=== PATIENT | female | born 1990 | race African-American/Black ===

== ENCOUNTER → 2018-01-29 | Outpatient (CLI) | payer OTHER ==
--- NOTE | 2018-01-30 17:08 | SLEEP ---
DATE OF STUDY: 01/29/2018 REFERRING PHYSICIAN: Dr. iWllis. OBJECTIVE: The patient is a 27-year-old female with prior diagnosis of narcolepsy and cataplexy, referred for a polysomnogram. Height 5 feet 4 inches, weight 181 pounds, body mass index 31. [place] sleep score 14. INTERPRETATION: Sleep architecture is characterized by sleep efficiency of 92% across the 7.4 hours of recording time. Stage volumes are appropriate for age. There is a sleep onset latency of 4 minutes. Respiratory monitoring shows a total of 34 events for an apnea-hypopnea index of 5 events per hour over the entire study. Prior to treatment, the apnea-hypopnea index is 15.9 events per hour of sleep. The patient is started on CPAP on the study and does the best on 9 cm of CPAP using a Respironics EasyLife nasal mask, small size. Periodic limb movements of sleep occur at the rate of 8 per hour, zero per hour associated with arousal. No cardiac arrhythmias are observed. IMPRESSION: Abnormal polysomnogram showing obstructive sleep apnea-hypopnea treatable with the 9 cm of CPAP, Respironics EasyLife nasal mask, small size. RECOMMENDATIONS: 1. The patient should be started on the CPAP setting. 2. Further diagnosis of narcolepsy should be held until the patient has had an adequate trial of CPAP. 3. The patient should avoid sedatives and alcohol and pursue weight loss. Thank you for letting us help with the patient's care. IVONE DE ANDA MD DR: EMIL/radha JOB#: [id number] / [id number] QUENTIN Reyes
== END | disposition home or self-care (01) ==
LOC: SLPLAB 18:26
PROVIDERS: ATTEND Psychiatry & Neurology Neurology
DX: G47.33 Obstructive sleep apnea (adult) (pediatric) (principal)
CPT/HCPCS: 95810

== ENCOUNTER 2018-05-24 12:45 | Inpatient (IN) | payer BC, OTHER ==
[~2018-05-24] VITALS: Ht 162.6 cm; Wt 83.5 kg
[2018-05-24] MEDS ORDERED: ONDANSETRON PF 4 MG/2 ML VIAL. IV PRN (14:45)
[2018-05-24] MEDS ORDERED: 0.9 % SODIUM CHLORIDE 10 ML DISP.SYRIN. IV PRN (14:45)
--- NOTE | 2018-05-24 14:45 | NUR ---
Pt arrived to unit by EMS, from [facility], report received by NATALIYA Lux. Admission Dx SBO vs appendicitis. Dr Walsh paged for orders, surgery consulted. Bed in low position, call light in reach, family present on admission. Allergies verified, Pt NPO at this time, IVFs initiated.
[2018-05-24 14:58] VITALS: BP 108/59
[2018-05-24] MEDS: fentaNYL PF VIAL 100 MCG/2 ML VIAL IV PRN ×2 (15:30→20:37)
[2018-05-24] MEDS: IV NORMAL SALINE 1000ML BAG 1,000 ML IV SCH (15:33)
[2018-05-24] MEDS: PIPERACILLIN/TAZOBACTAM 3.375 GM in IV NORMAL SALINE 50ML 50 ML IV SCH (17:21)
[2018-05-24 19:41] VITALS: BP 109/47
--- NOTE | 2018-05-24 20:10 | PDOC2 ---
CONSULT Date of Consult Date of Consult DATE: 05/24/18 TIME: 20:05 Reason for Consult Reason for Consult: SBO Referring Physician Referring Physician: Nico Identification/Chief Complaint Chief Complaint Abd pain Source Source: Chart review, Patient History of Present Illness Reason for Visit: 27 yo F with abd pain for one week. Seen in Er multiple times. Having normal stools. No previous episodes. Past Medical History Pulmonary: Other (sleep apnea) CENTRAL NERVOUS SYSTEM: Migraine Renal/: Other (nephrotic syndrome as teenage) Past Surgical History Past Surgical History: Other (kidney biopsy) Family History Family History: No Significant Social History No ALCOHOL: none Current Medications Current Medications Current Medications Sodium Chloride (Normal Saline Flush) 3 ml PRN DAILY PRN IV AFTER MEDS AND BLOOD DRAWS; Start 05/24/18 at 14:45 Ondansetron HCl (Zofran) 4 mg PRN Q4HRS PRN IV NAUSEA/VOMITING; Start at 14:45 Sodium Chloride 1,000 ml @ 100 mls/hr Q10H IV Last administered on 05/24/18at 15:33; Start 05/24/18 at 16:00 Fentanyl Citrate (Fentanyl 2ml Vial) 50 mcg PRN Q3HRS PRN IV PAIN Last administered on 05/24/18at 15:30; Start 05/24/18 at 14:45 Piperacillin Sod/ Tazobactam Sod 3.375 gm/Sodium Chloride 50 ml @ 100 mls/hr Q6HRS IV Last administered on 05/24/18at 17:21; Start 05/24/18 at 18:00 Allergies Allergies: Coded Allergies: Sulfa (Sulfonamide Antibiotics) (Verified Allergy, Intermediate, 05/24/18) lorazepam (Verified Allergy, Intermediate, 05/24/18) morphine (Verified Allergy, Intermediate, 05/24/18) oxycodone (Verified Allergy, Intermediate, 05/24/18) ROS Gastrointestinal: Yes Abdominal Pain Physical Exam General: Alert, Oriented X3, Cooperative, No acute distress HEENT: EOMI Lungs: Normal air movement Abdomen: Soft, Other (TTP diffusely, obese) Extremities: No clubbing, No cyanosis Skin: No rashes, No breakdown Neuro: Normal speech, Sensation intact Psych/Mental Status: Mental status NL, Mood NL Vitals VITALS Vital Signs Date Time Temp Pulse Resp B/P (MAP) Pulse Ox O2 Delivery O2 Flow Rate FiO2 05/24/18 19:41 97.4 67 18 109/47 (67) 98 Room Air 97.[address] c/w SBO, some free fluid Assessment/Plan Assessment/Plan SBO, favor enteritis no obvious appendix seen agree with abx and supportive care Thanks for consult! EVONNE ROBBINS MD May 24, 2018 20:10
[2018-05-24 23:49] VITALS: BP 106/44
[2018-05-25] VITALS (12 sets, daily range): BP systolic 98–122; BP diastolic 44–63
[2018-05-25] MEDS: PIPERACILLIN/TAZOBACTAM 3.375 GM in IV NORMAL SALINE 50ML 50 ML IV SCH ×5 (00:27→23:43)
[2018-05-25] MEDS: fentaNYL PF VIAL 100 MCG/2 ML VIAL IV PRN ×6 (00:39→18:21)
[2018-05-25] MEDS: IV NORMAL SALINE 1000ML BAG 1,000 ML IV SCH ×3 (06:01→18:19)
--- NOTE | 2018-05-25 09:39 | PDOC ---
ANDERSON OMALLEY APRN 05/25/18 0939: SURGICAL PROGRESS NOTE Subjective pain is worse diffuse, with stabbing RLQ pain no emesis, no diarrhea Vital Signs Vital Signs Date Time Temp Pulse Resp B/P (MAP) Pulse Ox O2 Delivery O2 Flow Rate FiO2 05/25/18 09:09 Room Air 05/25/18 07:00 98.4 66 16 108/53 (71) 96 98.4 I&O Intake and Output 05/25/18 07:01 Intake Total 0 ml Balance 0 ml Intake Oral 0 ml General: Alert, Oriented X3, Cooperative, No acute distress Abdomen: Soft, Other (diffusely ttp) Assessment/Plan abdominal pain labs pending NPO, will have EVONNE Kahn MD 05/25/18 1507: SURGICAL PROGRESS NOTE Assessment/Plan Given pt's persistent pain, recommend proceeding with laparoscopic exploration, appendectomy. R/R/B/A d/w pt and pt's family. Risks, including, but not limited to: bleeding , infection, damage to surrounding structures, risk of anesthesia. They appear to understand, their questions are answered and they elect to proceed. ANDERSON OMALLEY APRN May 25, 2018 09:39 EVONNE ROBBINS MD May 25, 2018 15:07
--- NOTE | 2018-05-25 10:03 | HP ---
ADMIT DATE: 05/25/2018 HISTORY OF PRESENT ILLNESS: The patient is a 27-year-old -[place] female patient, who apparently was seen in the Emergency Room of [facility] last Sunday complaining of abdominal pain. She was apparently diagnosed with severe constipation and was given laxatives. Although she did have bowel movement, she continued to have abdominal pain and she came yesterday to the Emergency Room of [facility], where a CT scan of the abdomen was done and showed that there was possible appendicitis versus bowel obstruction and [facility] team. The patient was kept n.p.o. Continue IV fluid and IV antibiotic as well as antiemetic and pain medication. PAST MEDICAL HISTORY: Significant for minimal change disease with nephrotic syndrome that is currently in remission. She is also known to have bronchial asthma that is mild and obstructive sleep apnea, for which she is on CPAP. She also has esophageal stricture and dysphagia. PAST SURGICAL HISTORY: Significant for kidney biopsy, esophageal stricture dilatation and surgery for squint. ALLERGIES: SHE IS ALLERGIC TO ATIVAN, MORPHINE, SULFA DRUGS AND CODEINE. MEDICATIONS: She is currently on the following medications: She stated that she was on metoprolol for headache. FAMILY HISTORY: She has 3 brothers and 3 sisters. One sister is younger. Everybody else is older and all seemingly healthy. Her father is , had history of COPD and congestive heart failure. His mother is still alive at the age of 60 and known to have hypertension. SOCIAL HISTORY: She is single, has no children. She never smoked. She does not drink alcohol or use recreational drugs. She works as a teacher. PHYSICAL EXAMINATION: GENERAL: On arrival to the Emergency Room of [facility], she looked well and was clearly in no apparent respiratory distress. No pallor, jaundice, cyanosis or thyromegaly. No jugular venous distention. No lower limb edema. VITAL SIGNS: Her heart rate was 64, blood pressure was 110/60, temperature was 98.3, respiratory rate was 18 and oxygen saturation was 100% on room air. HEENT: Examination of head, eyes, ears, nose and throat showed she is normocephalic, atraumatic. NECK: Supple. HEART: Showed normal first and second heart sounds. No gallop, rub or murmur. CHEST: Clear to auscultation. No crepitation or rhonchi. ABDOMEN: Tender, mostly in the right lower quadrant. There was, however, no guarding or rigidity. No organomegaly. All hernial orifices intact and bowel sounds normal. NEUROLOGIC: She was awake, alert, responding appropriately. All cranial nerves intact. She moved extremities without difficulty. She ambulated without assistance or assistive devices. LABORATORY DATA: While there, she had lab work done, which showed a white cell count of 18,800, hemoglobin 11.8, hematocrit 35.3, MCV was 87 and platelet count of 258,000 with normal manual differential. Her serum sodium was 136, potassium was 3, chloride was 100, bicarbonate 27, anion gap of 9, BUN 16, creatinine 1, estimated GFR was 81 mL per minute, her glucose was 84 and calcium was 8.5. Total bilirubin 0.5. AST, ALT and alkaline phosphatase were normal. Total protein was 7.3. Albumin 2.5. Her lipase was 88. Urinalysis showed the urine was yellow, hazy with a pH of 6, specific gravity of 1.020. The urine was negative for protein, glucose, ketones and blood. There was trace of blood, negative for nitrite and bilirubin. It was negative for leukocyte esterase. There were occasional rbc's, 1-4 wbc's and very few bacteria. The urine showed some yeast and urine test was negative. She apparently had a CT scan of the abdomen and pelvis, which basically showed that there was bowel obstruction with a transition zone in the right lower quadrant and therefore, the [facility] to continue with the IV fluid and status and continue with IV antibiotic in the form of Zosyn. Continue with antiemetic and pain medication. Her CT scan showed that there was interval development of small-bowel obstruction with transition point within the mid pelvis and ascites noted adjacent to the cecum, extending along the pelvic sidewall. Pelvic free fluid is present, subtle rim enhancement; underlying infectious etiology is questioned. LAUREN MAYA MD DR: RUPERT/radha JOB#: [id number] / [id number]
[2018-05-25 10:11] LABS: BASO % 0 % (0-3); EOS # 0.5 x10^3/uL (0.0-0.7); EOS % 4 % (0-3); HEMATOCRIT 34.9 % (36.0-47.0); LYMPH # 1.3 x10^3/uL (1.0-4.8); LYMPH % 10 % (24-48); MEAN CORPUSCULAR HEMOGLOBIN 30 pg (25-35); MEAN CORPUSCULAR HGB CONC 34 g/dL (31-37); MEAN CORPUSCULAR VOLUME 88 fL (79-100); MONO # 1.6 x10^3/uL (0.0-1.1); MONO % 13 % (0-9); NEUT # 9.7 x10^3uL (1.8-7.7); NEUT % 74 % (31-73); PLATELET COUNT 247 x10^3/uL (140-400); RED BLOOD COUNT 3.97 x10^6/uL (3.50-5.40); RED CELL DISTRIBUTION WIDTH 14.1 % (11.5-14.5); WHITE BLOOD COUNT 13.1 x10^3/uL (4.0-11.0)
[2018-05-25 10:18] LABS: ALBUMIN 2.2 g/dL (3.4-5.0); ALBUMIN/GLOBULIN RATIO 0.6 (1.0-1.7); CALCIUM 8.2 mg/dL (8.5-10.1); CREATININE 0.9 mg/dL (0.6-1.0); GFR 91.6; POTASSIUM 3.4 mmol/L (3.5-5.1); TOTAL PROTEIN 5.8 g/dL (6.4-8.2)
[2018-05-25 12:43] LABS: % BANDS 1 % (0-9); % EOS 5 % (0-5); % LYMPHS 11 % (24-48); % MONOS 12 % (0-10); % SEGS 71 % (35-66); PLT ESTIMATE ADEQUATE (ADEQUATE)
[2018-05-25] MEDS ORDERED: IV RINGERS,LACTATED 1000ML 1,000 ML IV SCH (15:08)
[2018-05-25] MEDS ORDERED: ONDANSETRON PF 4 MG/2 ML VIAL. IV PRN ×2 (15:15→18:00)
[2018-05-25] MEDS ORDERED: LIDOCAINE 1% PF 2 ML VIAL. ID PRN (15:15)
[2018-05-25] MEDS ORDERED: PROCHLORPERAZINE 10 MG/2 ML VIAL. IV PRN (15:15)
[2018-05-25] MEDS ORDERED: fentaNYL PF VIAL 100 MCG/2 ML VIAL IV PRN (15:15)
[2018-05-25] MEDS ORDERED: PROPOFOL 20 ML IV ONE (15:29)
[2018-05-25] MEDS ORDERED: fentaNYL PF VIAL 100 MCG/2 ML VIAL ONE (15:29)
[2018-05-25] MEDS ORDERED: ONDANSETRON PF 4 MG/2 ML VIAL. ONE (15:29)
[2018-05-25] MEDS ORDERED: ROCURONIUM 50 MG/5 ML VIAL. ONE (15:29)
[2018-05-25] MEDS ORDERED: KETOROLAC 30 MG/ML INJ FOR OR. INJ ONE (15:29)
[2018-05-25] MEDS ORDERED: LIDOCAINE 2% PF Vial for OR 5 ML VIAL. ONE (15:29)
[2018-05-25] MEDS ORDERED: DEXAMETHASONE SOD PHOS 20 MG/5 ML VIAL. ONE (15:29)
[2018-05-25] MEDS ORDERED: MIDAZOLAM HCL/PF 2 MG/2 ML VIAL. ONE (15:46)
[2018-05-25] MEDS ORDERED: BUPIVAC MPF-EPI 0.5%-1:200000 30 ML VIAL. ONE (16:03)
[2018-05-25] MEDS ORDERED: FAMOTIDINE 20 MG/2 ML VIAL ONE (16:37)
[2018-05-25] MEDS ORDERED: NEOSTIGMINE METHYLSULFATE 5 MG/5 ML SYRINGE. ONE (17:14)
[2018-05-25] MEDS ORDERED: GLYCOPYRROLATE 1 MG/5 ML VIAL. ONE (17:14)
[2018-05-25] MEDS ORDERED: SEVOFLURANE 31 TO 60 MINUTES. IH ONE (17:15)
[2018-05-25] MEDS: IV RINGERS,LACTATED 1000ML 1,000 ML IV SCH (17:58)
[2018-05-25] MEDS ORDERED: 0.9 % SODIUM CHLORIDE 10 ML DISP.SYRIN. IV PRN (18:00)
--- NOTE | 2018-05-25 18:10 | PDOC4 ---
OPERATIVE NOTE Date: Date: May 25, 2018 Pre-Op Diagnosis: Abdominal pain, small bowel obstruction Post-Op Diagnosis: same, pelvic inflammatory disease Procedure Performed: Laparoscopic appendectomy, exploration Surgeon: Kailash Robbins Anesthesia Type: GETA plus local Blood Loss: 50 Specimans Obtained: cultures, abscess specimen, appendix Findings: Diffuse inflammatory change involving the deep pelvis, no obvious abscess, secondarily inflamed appendix Complications: none Operative Note: After obtaining informed consent, patient was taken to OR, induced under GETA and prepped in the usual fashion. 5 mm port placed LLQ and suprapubic, 12 port placed umbilical, all under laparoscopic guidance. Abdominal cavity was explored. Extensive amount of inflammatory change noted in deep pelvis with adherent loops of small bowel. This was extensive broken up laparoscopically and cultures were obtained. Fibrinous debris was sent to pathology. Uterus grossly normal, but ovaries were difficult to complete identify. Small bowel loops secondarily involved in the process. These were gentle , secondary to concern for small bowel obstruction. Serosal tear created, inherent to procedure, but no mucosal defect created and bowel remained intact. Ultimately, small bowel and colon worked out and no obvious pathology noted, except for secondary inflammation. Gallbladder grossly normal, as is liver and stomach. Appendix was identified and appeared to be secondarily involved. Given concerns for appendicitis, it was resected. Defect created in mesoappendix. CAMILLA used to amputate appendix at base of cecum. Mesoappendix taken with vascular load. Appendix placed in bag, delivered and sent to pathology for evaluation. Copious irrigation performed, with several liters of fluid concentrating in pelvis. No obvious bleeding or additional pathology noted. Ports removed without bleeding. Fascia repaired with 0 vicryl. Skin repaired with 4 0 monocryl. Dressing applied. Patient tolerated procedure well and sent to PACU in stable condition. All counts correct. Wound class is 4, dirty. EVONNE ROBBINS MD May 25, 2018 18:10
[2018-05-25] MEDS: HYDROmorphone 2 MG/ML VIAL IV PRN ×2 (19:44→20:55)
[2018-05-25 20:49] LABS: U PREG PATIENT NEGATIVE (NEG)
[2018-05-25] MEDS: HYDROcodone/APAP 5/325MG 1 TAB TABLET PO PRN (20:49)
[2018-05-25] MEDS: KETOROLAC 15 MG/ML VIAL. IV PRN (20:49)
[2018-05-25] MEDS: DOCUSATE SODIUM 100 MG CAPSULE. PO SCH (21:00)
--- NOTE | 2018-05-25 23:15 | PN ---
DATE: 05/25/2018 SUBJECTIVE: The patient is resting slightly propped up, sleeping comfortably, in no apparent distress. On questioning her, she continued to complain of abdominal pain that is diffuse, worse in the right lower quadrant. She has had no nausea or vomiting; however, she denied any bowel movement or passing gas. Her last bowel movement was yesterday. Denied any fever, chills or rigors. PHYSICAL EXAMINATION: GENERAL: When I examined her, she looked well and was clearly in no apparent respiratory distress. No pallor, jaundice, cyanosis or thyromegaly. No jugular venous distension. No limb edema. VITAL SIGNS: Her heart rate was 66, blood pressure was 108/53, temperature was 98.4, respiratory rate was 16 and oxygen saturation was 96% on room air. HEAD, EYES, EARS, NOSE AND THROAT: Normocephalic, atraumatic. NECK: Supple. HEART: Showed normal first and second heart sounds. No gallop, rub or murmur. CHEST: Clear to auscultation. No crepitation or rhonchi. ABDOMEN: Distended, soft with tenderness mostly in the right lower quadrant. There is no guarding or rigidity. Bowel sounds are sluggish. NEUROLOGIC: She is awake, alert, responding appropriately. All cranial nerves are intact. She moves extremities without difficulty. She ambulates without assistance or assistive devices. She apparently was seen by Dr. Paredes yesterday who recommended to continue with antibiotic and supportive therapy for the time being. In summary, this is a 27-year-old female patient who came with abdominal pain. CT scan was consistent with small bowel obstruction. Would continue with IV fluid, continue with IV antibiotic, continue pain management as well as antiemetic. I would repeat her lab work this morning as her potassium was somewhat low yesterday on 80 mEq to make sure that is not contributing to paralytic ileus if any. LAUREN MAYA MD DR: RUPERT/radha JOB#: [id number] / [id number]
[2018-05-26] VITALS (7 sets, daily range): BP systolic 105–122; BP diastolic 53–69
[2018-05-26] MEDS: HYDROcodone/APAP 5/325MG 1 TAB TABLET PO PRN ×5 (03:00→22:43)
[2018-05-26] MEDS: KETOROLAC 15 MG/ML VIAL. IV PRN ×2 (03:01→14:27)
[2018-05-26] MEDS: IV RINGERS,LACTATED 1000ML 1,000 ML IV SCH (03:49)
[2018-05-26] MEDS: HYDROmorphone 2 MG/ML VIAL IV PRN (03:50)
[2018-05-26] MEDS: IV NORMAL SALINE 1000ML BAG 1,000 ML IV SCH (06:15)
[2018-05-26] MEDS: PIPERACILLIN/TAZOBACTAM 3.375 GM in IV NORMAL SALINE 50ML 50 ML IV SCH ×3 (06:15→17:40)
[2018-05-26] MEDS: fentaNYL PF VIAL 100 MCG/2 ML VIAL IV PRN ×3 (06:24→21:04)
[2018-05-26 08:05] LABS: BASO % 0 % (0-3); EOS % 0 % (0-3); HEMATOCRIT 35.2 % (36.0-47.0); HEMOGLOBIN 11.9 g/dL (12.0-15.5); LYMPH # 0.8 x10^3/uL (1.0-4.8); LYMPH % 5 % (24-48); MEAN CORPUSCULAR HEMOGLOBIN 30 pg (25-35); MEAN CORPUSCULAR HGB CONC 34 g/dL (31-37); MEAN CORPUSCULAR VOLUME 87 fL (79-100); MONO % 6 % (0-9); NEUT # 15.4 x10^3uL (1.8-7.7); NEUT % 89 % (31-73); PLATELET COUNT 286 x10^3/uL (140-400); RED BLOOD COUNT 4.04 x10^6/uL (3.50-5.40); RED CELL DISTRIBUTION WIDTH 14.2 % (11.5-14.5); WHITE BLOOD COUNT 17.3 x10^3/uL (4.0-11.0)
--- NOTE | 2018-05-26 09:12 | PDOC ---
SURGICAL PROGRESS NOTE Subjective taking some clears moderate pain Vital Signs Vital Signs Date Time Temp Pulse Resp B/P (MAP) Pulse Ox O2 Delivery O2 Flow Rate FiO2 05/26/18 06:54 Room Air 05/26/18 03:50 94 05/26/18 03:07 98.1 60 18 112/60 (77) 98.1 05/25/18 18:05 10.0 I&O Intake and Output 05/26/18 07:01 Intake Total 1590 ml Output Total 200 ml Balance 1390 ml Intake Oral 590 ml IV Total 1000 ml Output Urine Total 200 ml # Voids 1 General: Alert, Oriented X3, Cooperative, No acute distress Abdomen: Soft, Other (dressings dry, lower abdominal tenderness ) Labs Laboratory Tests Test 05/25/18 09:30 05/25/18 15:30 05/26/18 07:36 White Blood Count 13.1 x10^3/uL (4.0-11.0) 17.3 x10^3/uL (4.0-11.0) Red Blood Count 3.97 x10^6/uL (3.50-5.40) 4.04 x10^6/uL (3.50-5.40) Hemoglobin 12.0 g/dL (12.0-15.5) 11.9 g/dL (12.0-15.5) Hematocrit 34.9 % (36.0-47.0) 35.2 % (36.0-47.0) Mean Corpuscular Volume 88 fL (79-100) 87 fL (79-100) Mean Corpuscular Hemoglobin 30 pg (25-35) 30 pg (25-35) Mean Corpuscular Hemoglobin Concent 34 g/dL (31-37) 34 g/dL (31-37) Red Cell Distribution Width 14.1 % (11.5-14.5) 14.2 % (11.5-14.5) Platelet Count 247 x10^3/uL (140-400) 286 x10^3/uL (140-400) Neutrophils (%) (Auto) 74 % (31-73) 89 % (31-73) Lymphocytes (%) (Auto) 10 % (24-48) 5 % (24-48) Monocytes (%) (Auto) 13 % (0-9) 6 % (0-9) Eosinophils (%) (Auto) 4 % (0-3) 0 % (0-3) Basophils (%) (Auto) 0 % (0-3) 0 % (0-3) Neutrophils # (Auto) 9.7 x10^3uL (1.8-7.7) 15.4 x10^3uL (1.8-7.7) Lymphocytes # (Auto) 1.3 x10^3/uL (1.0-4.8) 0.8 x10^3/uL (1.0-4.8) Monocytes # (Auto) 1.6 x10^3/uL (0.0-1.1) 1.0 x10^3/uL (0.0-1.1) Eosinophils # (Auto) 0.5 x10^3/uL (0.0-0.7) 0.0 x10^3/uL (0.0-0.7) Basophils # (Auto) 0.0 x10^3/uL (0.0-0.2) 0.0 x10^3/uL (0.0-0.2) Segmented Neutrophils % 71 % (35-66) Band Neutrophils % 1 % (0-9) Lymphocytes % 11 % (24-48) Monocytes % 12 % (0-10) Eosinophils % 5 % (0-5) Platelet Estimate Adequate (ADEQUATE) Sodium Level 141 mmol/L (136-145) Potassium Level 3.4 mmol/L (3.5-5.1) Chloride Level 104 mmol/L (98-107) Carbon Dioxide Level 24 mmol/L (21-32) Anion Gap 13 (6-14) Blood Urea Nitrogen 20 mg/dL (7-20) Creatinine 0.9 mg/dL (0.6-1.0) Estimated GFR (Cockcroft-Gault) 91.6 BUN/Creatinine Ratio 22 (6-20) Glucose Level 64 mg/dL (70-99) Calcium Level 8.2 mg/dL (8.5-10.1) Total Bilirubin 1.0 mg/dL (0.2-1.0) Aspartate Amino Transf (AST/SGOT) 12 U/L (15-37) Alanine Aminotransferase (ALT/SGPT) 12 U/L (14-59) Alkaline Phosphatase 53 U/L (46-116) Total Protein 5.8 g/dL (6.4-8.2) Albumin 2.2 g/dL (3.4-5.0) Albumin/Globulin Ratio 0.6 (1.0-1.7) Urine Test Negative (NEG) Laboratory Tests Test 05/25/18 09:30 05/25/18 15:30 05/26/18 07:36 White Blood Count 13.1 x10^3/uL (4.0-11.0) 17.3 x10^3/uL (4.0-11.0) Red Blood Count 3.97 x10^6/uL (3.50-5.40) 4.04 x10^6/uL (3.50-5.40) Hemoglobin 12.0 g/dL (12.0-15.5) 11.9 g/dL (12.0-15.5) Hematocrit 34.9 % (36.0-47.0) 35.2 % (36.0-47.0) Mean Corpuscular Volume 88 fL (79-100) 87 fL (79-100) Mean Corpuscular Hemoglobin 30 pg (25-35) 30 pg (25-35) Mean Corpuscular Hemoglobin Concent 34 g/dL (31-37) 34 g/dL (31-37) Red Cell Distribution Width 14.1 % (11.5-14.5) 14.2 % (11.5-14.5) Platelet Count 247 x10^3/uL (140-400) 286 x10^3/uL (140-400) Neutrophils (%) (Auto) 74 % (31-73) 89 % (31-73) Lymphocytes (%) (Auto) 10 % (24-48) 5 % (24-48) Monocytes (%) (Auto) 13 % (0-9) 6 % (0-9) Eosinophils (%) (Auto) 4 % (0-3) 0 % (0-3) Basophils (%) (Auto) 0 % (0-3) 0 % (0-3) Neutrophils # (Auto) 9.7 x10^3uL (1.8-7.7) 15.4 x10^3uL (1.8-7.7) Lymphocytes # (Auto) 1.3 x10^3/uL (1.0-4.8) 0.8 x10^3/uL (1.0-4.8) Monocytes # (Auto) 1.6 x10^3/uL (0.0-1.1) 1.0 x10^3/uL (0.0-1.1) Eosinophils # (Auto) 0.5 x10^3/uL (0.0-0.7) 0.0 x10^3/uL (0.0-0.7) Basophils # (Auto) 0.0 x10^3/uL (0.0-0.2) 0.0 x10^3/uL (0.0-0.2) Segmented Neutrophils % 71 % (35-66) Band Neutrophils % 1 % (0-9) Lymphocytes % 11 % (24-48) Monocytes % 12 % (0-10) Eosinophils % 5 % (0-5) Platelet Estimate Adequate (ADEQUATE) Sodium Level 141 mmol/L (136-145) Potassium Level 3.4 mmol/L (3.5-5.1) Chloride Level 104 mmol/L (98-107) Carbon Dioxide Level 24 mmol/L (21-32) Anion Gap 13 (6-14) Blood Urea Nitrogen 20 mg/dL (7-20) Creatinine 0.9 mg/dL (0.6-1.0) Estimated GFR (Cockcroft-Gault) 91.6 BUN/Creatinine Ratio 22 (6-20) Glucose Level 64 mg/dL (70-99) Calcium Level 8.2 mg/dL (8.5-10.1) Total Bilirubin 1.0 mg/dL (0.2-1.0) Aspartate Amino Transf (AST/SGOT) 12 U/L (15-37) Alanine Aminotransferase (ALT/SGPT) 12 U/L (14-59) Alkaline Phosphatase 53 U/L (46-116) Total Protein 5.8 g/dL (6.4-8.2) Albumin 2.2 g/dL (3.4-5.0) Albumin/Globulin Ratio 0.6 (1.0-1.7) Urine Test Negative (NEG) Problem List s/p appy, PID await CHEMICAL ANALYTICAL SAMPLER, ID ANDERSON Yuan APRN May 26, 2018 09:12
[2018-05-26] MEDS: POTASSIUM CL 40MEQ D5-0.45NACL 1,000 ML IV SCH ×2 (09:41→22:20)
[2018-05-26] MEDS: DOCUSATE SODIUM 100 MG CAPSULE. PO SCH ×2 (09:42→21:03)
[2018-05-26] MEDS: ENOXAPARIN 40 MG/0.4 ML SYRINGE. SQ SCH (09:42)
--- NOTE | 2018-05-26 10:32 | NUR ---
This nurse administered the Lovenox shot for this patient then went to administer the Flagyl, patient has complaints of "buring in the throat", this nurse spoke with pharmacy as well as Dr. Walsh. Orders received for Benadryl. This nurse will continue to assist with this patient as needed.
[2018-05-26] MEDS ORDERED: diphenhydrAMINE 50 MG/ML VIAL IVP PRN (10:45)
[2018-05-26] MEDS: DOXYCYCLINE HYCLATE 100 MG in IV DEXTROSE 5% 100ML 100 ML IV SCH ×2 (11:19→21:03)
--- NOTE | 2018-05-26 13:59 | PDOC ---
Infectious Disease Note Vital Sign Vital Signs Vital Signs Date Time Temp Pulse Resp B/P (MAP) Pulse Ox O2 Delivery O2 Flow Rate FiO2 05/26/18 11:50 Room Air 1.0 05/26/18 11:00 58 18 116/67 (83) 95 05/26/18 07:00 98.4 98.4 Labs Lab Laboratory Tests Test 05/25/18 15:30 05/26/18 07:36 05/26/18 09:45 Urine Test Negative (NEG) White Blood Count 17.3 x10^3/uL (4.0-11.0) Red Blood Count 4.04 x10^6/uL (3.50-5.40) Hemoglobin 11.9 g/dL (12.0-15.5) Hematocrit 35.2 % (36.0-47.0) Mean Corpuscular Volume 87 fL (79-100) Mean Corpuscular Hemoglobin 30 pg (25-35) Mean Corpuscular Hemoglobin Concent 34 g/dL (31-37) Red Cell Distribution Width 14.2 % (11.5-14.5) Platelet Count 286 x10^3/uL (140-400) Neutrophils (%) (Auto) 89 % (31-73) Lymphocytes (%) (Auto) 5 % (24-48) Monocytes (%) (Auto) 6 % (0-9) Eosinophils (%) (Auto) 0 % (0-3) Basophils (%) (Auto) 0 % (0-3) Neutrophils # (Auto) 15.4 x10^3uL (1.8-7.7) Lymphocytes # (Auto) 0.8 x10^3/uL (1.0-4.8) Monocytes # (Auto) 1.0 x10^3/uL (0.0-1.1) Eosinophils # (Auto) 0.0 x10^3/uL (0.0-0.7) Basophils # (Auto) 0.0 x10^3/uL (0.0-0.2) Treponema pallidum Antibody Nonreactive (Nonreactive) Objective Assessment Acute onset abdominal pain s/p lap appendectomy, exploration, 05/25; Diffuse inflammatory change involving the deep pelvis, no obvious abscess, secondarily inflamed appendix found Leukocytosis, multifactorial (infection, surgery, pre-op steroids) Sulfa allergy - hives and itching Recent UTI diagnosed at [facility]. Rx cipro h/x unprotected sex and chlamydia Nephrotic syndrome Plan Plan of Care Chlam/GC PCR UR pending. Syphilis - neg HIV screen pending margarita Ramesh/Lan (per PRESS SETTER) Monitor labs/temp/pain level Safe sex practices discussed D/w RN D/w mother Attending Co-Sign Attending Co-Sign The patient was seen and interviewed as well as examined at the bedside. The chart was reviewed. The case was discussed. Agree with the plan of care. LEENA SMITH APRN May 26, 2018 13:59 YOLANDE SAUCEDO MD May 26, 2018 15:27
[2018-05-26] MEDS: LACTOBACILLUS RHAMNOSUS GG 1 CAPSULE. PO SCH (21:03)
[2018-05-27] MEDS: PIPERACILLIN/TAZOBACTAM 3.375 GM in IV NORMAL SALINE 50ML 50 ML IV SCH ×4 (00:02→21:51)
--- NOTE | 2018-05-27 00:30 | PN ---
DATE: 05/26/2018 SUBJECTIVE: The patient is resting slightly propped up in bed, in no apparent distress. She continued to complain of abdominal pain; however, she denied any nausea or vomiting. Denied any passing gas or having bowel movement. She apparently underwent laparoscopic appendectomy and exploration. She was found to have diffuse inflammatory changes involving the deep pelvis. No obvious abscess, secondarily inflamed appendix. PHYSICAL EXAMINATION: GENERAL: When I examined her this morning, she was resting flat comfortably, in no apparent respiratory distress. No pallor, jaundice, cyanosis or thyromegaly. No jugular venous distension. No lower limb edema. VITAL SIGNS: Her heart rate was 60, blood pressure was 112/60, temperature was 98.1, respiratory rate was 18 and oxygen saturation was 94%. HEAD, EYES, EARS, NOSE AND THROAT: Showed normocephalic, atraumatic. NECK: Supple. HEART: Showed normal first and second heart sounds with no gallop, rub or murmur. CHEST: Clear to auscultation. No crepitation or rhonchi. ABDOMEN: Definitely more distended than yesterday, diffuse tenderness. NEUROLOGIC: She is awake, alert, responding appropriately. Her intake over the last 24 hours was 1550, no output was recorded. LABORATORY DATA: As of this morning showed a white cell count of 17,300, hemoglobin 11.9, hematocrit 35, MCV 87 and platelet count of 286,000. Her serum sodium was 141, potassium 3.4, chloride 104, bicarbonate 24, anion gap of 13, BUN 20, creatinine 0.9, estimated GFR was 91 mL per minute. Her glucose was 64. Calcium was 9.2. Total bilirubin, AST, ALT, alkaline phosphatase were normal. Total protein was 5.8, albumin was 2.2. ASSESSMENT: 1. The patient was found to have diffuse inflammatory changes involving the deep pelvis. No obvious abscess, secondarily inflamed appendix, status post laparoscopic appendectomy and exploration. 2. Other medical problems include bronchial asthma. 3. Obstructive sleep apnea, on CPAP. 4. Nephrotic syndrome, in remission. 5. Hypokalemia. PLAN: My plan is to change her IV fluid to D5 half normal with 40 mEq of potassium chloride. The patient was started on a clear liquid diet. The patient asking whether she can go home and I advised her that it is probably not a good idea given that she continued to have this severe pain. LAUREN MAYA MD DR: RUPERT/radha JOB#: [id number] / [id number]
--- NOTE | 2018-05-27 01:10 | CONS ---
DATE OF CONSULTATION: 05/26/2018 REASON FOR CONSULTATION: Pelvic inflammatory disease. CONSULTING SERVICE: Internal Medicine. HISTORY OF PRESENT ILLNESS: This is a 27-year-old nulliparous white female who presented to the hospital approximately 05/24/2018 with acute pelvic pain. The patient gives a history of having infertility problems over the past few years and actually had seen an infertility doctor on 05/13/2018 with subsequent pelvic pain starting shortly after that. The patient describes a vaginal ultrasound, but no other procedure. The patient denies any similar problems in the past, any problems with dyspareunia or pelvic pain or abnormal uterine bleeding. PAST MEDICAL HISTORY: Significant for bronchial asthma, esophageal strictures, dysphagia. PAST SURGICAL HISTORY: Kidney polyp biopsy, esophageal dilatation. PAST GYNECOLOGIC HISTORY: The patient gives no history of abnormal Pap smears. PAST SEXUALLY TRANSMITTED DISEASES HISTORY: She had chlamydia approximately 6 years ago that was treated. FAMILY HISTORY: Noncontributory. Chart reviewed. Dr. Paredes's surgical dictation reviewed consistent with pelvic inflammatory disease. No pelvic exam was done at this time secondary to the patient's recent laparoscopic appendectomy with adhesiolysis. IMPRESSION: Pelvic inflammatory disease. We will start Flagyl and doxycycline along with current antibiotics. The patient's pain is somewhat controlled. White count has shown trending down and she remains afebrile for at least 24-48 hours. The patient should be discharged home on Flagyl 500 mg b.i.d. p.o. along with doxycycline 100 mg p.o. b.i.d. I appreciate you allowing me to participate in the care of this patient. If you have any questions about this patient or any other patient, feel free to contact me. OMI CRABTREE MD DR: BELGICA/radha JOB#: [id number] / [id number]
[2018-05-27 02:54] VITALS: BP 112/72
[2018-05-27] MEDS: HYDROcodone/APAP 5/325MG 1 TAB TABLET PO PRN ×3 (06:20→18:02)
[2018-05-27 07:00] VITALS: BP 108/68
[2018-05-27] MEDS: ENOXAPARIN 40 MG/0.4 ML SYRINGE. SQ SCH ×2 (08:54→09:00)
[2018-05-27] MEDS: LACTOBACILLUS RHAMNOSUS GG 1 CAPSULE. PO SCH ×2 (08:54→21:46)
[2018-05-27] MEDS: DOCUSATE SODIUM 100 MG CAPSULE. PO SCH ×2 (08:54→21:46)
--- NOTE | 2018-05-27 09:22 | PDOC ---
SURGICAL PROGRESS NOTE Subjective still with significant lower abdominal pain poor appetite Vital Signs Vital Signs Date Time Temp Pulse Resp B/P (MAP) Pulse Ox O2 Delivery O2 Flow Rate FiO2 05/27/18 07:20 16 Room Air 05/27/18 07:00 98.4 6 108/68 (81) 95 98.4 05/26/18 23:59 1.0 I&O Intake and Output 05/27/18 07:01 Intake Total 480 ml Balance 480 ml Intake Oral 480 ml # Voids 4 General: Alert, Oriented X3, Cooperative, No acute distress Abdomen: Soft, Other (TTP) Labs Laboratory Tests Test 05/25/18 09:30 05/25/18 15:30 05/26/18 07:36 05/26/18 09:45 White Blood Count 13.1 x10^3/uL (4.0-11.0) 17.3 x10^3/uL (4.0-11.0) Red Blood Count 3.97 x10^6/uL (3.50-5.40) 4.04 x10^6/uL (3.50-5.40) Hemoglobin 12.0 g/dL (12.0-15.5) 11.9 g/dL (12.0-15.5) Hematocrit 34.9 % (36.0-47.0) 35.2 % (36.0-47.0) Mean Corpuscular Volume 88 fL (79-100) 87 fL (79-100) Mean Corpuscular Hemoglobin 30 pg (25-35) 30 pg (25-35) Mean Corpuscular Hemoglobin Concent 34 g/dL (31-37) 34 g/dL (31-37) Red Cell Distribution Width 14.1 % (11.5-14.5) 14.2 % (11.5-14.5) Platelet Count 247 x10^3/uL (140-400) 286 x10^3/uL (140-400) Neutrophils (%) (Auto) 74 % (31-73) 89 % (31-73) Lymphocytes (%) (Auto) 10 % (24-48) 5 % (24-48) Monocytes (%) (Auto) 13 % (0-9) 6 % (0-9) Eosinophils (%) (Auto) 4 % (0-3) 0 % (0-3) Basophils (%) (Auto) 0 % (0-3) 0 % (0-3) Neutrophils # (Auto) 9.7 x10^3uL (1.8-7.7) 15.4 x10^3uL (1.8-7.7) Lymphocytes # (Auto) 1.3 x10^3/uL (1.0-4.8) 0.8 x10^3/uL (1.0-4.8) Monocytes # (Auto) 1.6 x10^3/uL (0.0-1.1) 1.0 x10^3/uL (0.0-1.1) Eosinophils # (Auto) 0.5 x10^3/uL (0.0-0.7) 0.0 x10^3/uL (0.0-0.7) Basophils # (Auto) 0.0 x10^3/uL (0.0-0.2) 0.0 x10^3/uL (0.0-0.2) Segmented Neutrophils % 71 % (35-66) Band Neutrophils % 1 % (0-9) Lymphocytes % 11 % (24-48) Monocytes % 12 % (0-10) Eosinophils % 5 % (0-5) Platelet Estimate Adequate (ADEQUATE) Sodium Level 141 mmol/L (136-145) Potassium Level 3.4 mmol/L (3.5-5.1) Chloride Level 104 mmol/L (98-107) Carbon Dioxide Level 24 mmol/L (21-32) Anion Gap 13 (6-14) Blood Urea Nitrogen 20 mg/dL (7-20) Creatinine 0.9 mg/dL (0.6-1.0) Estimated GFR (Cockcroft-Gault) 91.6 BUN/Creatinine Ratio 22 (6-20) Glucose Level 64 mg/dL (70-99) Calcium Level 8.2 mg/dL (8.5-10.1) Total Bilirubin 1.0 mg/dL (0.2-1.0) Aspartate Amino Transf (AST/SGOT) 12 U/L (15-37) Alanine Aminotransferase (ALT/SGPT) 12 U/L (14-59) Alkaline Phosphatase 53 U/L (46-116) Total Protein 5.8 g/dL (6.4-8.2) Albumin 2.2 g/dL (3.4-5.0) Albumin/Globulin Ratio 0.6 (1.0-1.7) Urine Test Negative (NEG) Treponema pallidum Antibody Nonreactive (Nonreactive) Laboratory Tests Test 05/26/18 09:45 Treponema pallidum Antibody Nonreactive (Nonreactive) Assessment/Plan s/p appy PID--as per CONTRACT ADMINISTRATION COORDINATOR, ID stable surgically ANDERSON OMALLEY APRN May 27, 2018 09:22
[2018-05-27 11:00] VITALS: BP 123/54
--- NOTE | 2018-05-27 11:05 | NUR ---
SW following for dc planning. Discussed with RN. RN advised pt is from home. RN advised no SW needs at this time. SW will continue to follow.
[2018-05-27] MEDS: DOXYCYCLINE HYCLATE 100 MG in IV DEXTROSE 5% 100ML 100 ML IV SCH ×2 (11:12→21:51)
[2018-05-27 11:43] LABS: BASO % 0 % (0-3); EOS # 0.5 x10^3/uL (0.0-0.7); EOS % 4 % (0-3); HEMATOCRIT 34.2 % (36.0-47.0); HEMOGLOBIN 11.7 g/dL (12.0-15.5); LYMPH # 2.2 x10^3/uL (1.0-4.8); LYMPH % 18 % (24-48); MEAN CORPUSCULAR HEMOGLOBIN 30 pg (25-35); MEAN CORPUSCULAR HGB CONC 34 g/dL (31-37); MEAN CORPUSCULAR VOLUME 87 fL (79-100); MONO # 1.1 x10^3/uL (0.0-1.1); MONO % 9 % (0-9); NEUT # 8.7 x10^3uL (1.8-7.7); NEUT % 69 % (31-73); PLATELET COUNT 309 x10^3/uL (140-400); RED BLOOD COUNT 3.91 x10^6/uL (3.50-5.40); RED CELL DISTRIBUTION WIDTH 14.2 % (11.5-14.5); WHITE BLOOD COUNT 12.6 x10^3/uL (4.0-11.0)
[2018-05-27 11:46] LABS: CALCIUM 8.6 mg/dL (8.5-10.1); CREATININE 0.9 mg/dL (0.6-1.0); GFR 91.6; POTASSIUM 3.2 mmol/L (3.5-5.1)
--- NOTE | 2018-05-27 13:41 | PDOC ---
Infectious Disease Note Subjective Subjective c/o burning-type pain, localized to the right of the incisions Not sleeping well or been up walking except to go to the bathroom PIV site sore + flatus and small BM GI soft diet, not very hungry Denies F/C/N/V/D/SOA Fiance visiting ROS ROS per HPI otherwise neg Vital Sign Vital Signs Vital Signs Date Time Temp Pulse Resp B/P (MAP) Pulse Ox O2 Delivery O2 Flow Rate FiO2 05/27/18 11:00 87.4 67 18 123/54 (77) 95 Room Air 87.4 05/26/18 23:59 1.0 Physical Exam PHYSICAL EXAM GENERAL: Slowly walking back to bed HENT: Oral cavity clear NECK: Supple LUNGS: Clear CV: S1 S2 ABDOMEN: Distended, soft, tender, + BS. Small dressing dry EXT: No gross edema SKIN: warm without rash ADVICE NURSE: Alert, oriented PIV ok Labs Lab Laboratory Tests Test 05/27/18 10:44 White Blood Count 12.6 x10^3/uL (4.0-11.0) Red Blood Count 3.91 x10^6/uL (3.50-5.40) Hemoglobin 11.7 g/dL (12.0-15.5) Hematocrit 34.2 % (36.0-47.0) Mean Corpuscular Volume 87 fL (79-100) Mean Corpuscular Hemoglobin 30 pg (25-35) Mean Corpuscular Hemoglobin Concent 34 g/dL (31-37) Red Cell Distribution Width 14.2 % (11.5-14.5) Platelet Count 309 x10^3/uL (140-400) Neutrophils (%) (Auto) 69 % (31-73) Lymphocytes (%) (Auto) 18 % (24-48) Monocytes (%) (Auto) 9 % (0-9) Eosinophils (%) (Auto) 4 % (0-3) Basophils (%) (Auto) 0 % (0-3) Neutrophils # (Auto) 8.7 x10^3uL (1.8-7.7) Lymphocytes # (Auto) 2.2 x10^3/uL (1.0-4.8) Monocytes # (Auto) 1.1 x10^3/uL (0.0-1.1) Eosinophils # (Auto) 0.5 x10^3/uL (0.0-0.7) Basophils # (Auto) 0.0 x10^3/uL (0.0-0.2) Sodium Level 140 mmol/L (136-145) Potassium Level 3.2 mmol/L (3.5-5.1) Chloride Level 102 mmol/L (98-107) Carbon Dioxide Level 28 mmol/L (21-32) Anion Gap 10 (6-14) Blood Urea Nitrogen 11 mg/dL (7-20) Creatinine 0.9 mg/dL (0.6-1.0) Estimated GFR (Cockcroft-Gault) 91.6 Glucose Level 104 mg/dL (70-99) Calcium Level 8.6 mg/dL (8.5-10.1) Objective Assessment Acute onset abdominal pain s/p lap appendectomy, exploration, 05/25; Diffuse inflammatory change involving the deep pelvis, no obvious abscess, secondarily inflamed appendix found Leukocytosis, multifactorial (infection, surgery, pre-op steroids) Sulfa allergy - hives and itching Recent UTI diagnosed at [facility]. Rx cipro h/x unprotected sex and chlamydia Nephrotic syndrome Plan Plan of Care Chlam/GC PCR UR pending. Syphilis - neg HIV ab screen nonreactive Zosyn, doxy/Flagyl (per TRAFFIC ROUTING ENGINEER) probiotics Monitor labs/temp/pain level Pain management per primary D/w nursing Attending Co-Sign Attending Co-Sign The patient was seen and interviewed as well as examined at the bedside. The chart was reviewed. The case was discussed. Agree with the plan of care. LEENA SMITH APRN May 27, 2018 13:41 YOLANDE SAUCEDO MD May 27, 2018 16:27
[2018-05-27 15:00] VITALS: BP 112/42
[2018-05-27] MEDS: KETOROLAC 15 MG/ML VIAL. IV PRN ×2 (15:21→21:50)
--- NOTE | 2018-05-27 15:46 | CONS ---
DATE OF CONSULTATION: 05/26/2018 INFECTIOUS DISEASE CONSULTATION REFERRING PHYSICIAN: Dr. Paredes. REASON FOR CONSULTATION: Pelvic inflammatory disease. HISTORY OF PRESENT ILLNESS: The patient is a 27-year-old -Luxembourger female who was in her usual state of health when on 05/20/2018 she went out shopping for at the day. That evening, she did not feel well. She developed body aches and lower abdominal pain. She was treated for urinary tract infection with Cipro at [facility] ER. The following day, the abdominal pain persisted and had difficulty walking. She presented to [facility] ER for further evaluation and was found to have elevated white blood cell count of 16,000 and a large amount of stool present on abdominal/pelvis CT scan. She was released home on laxatives. She had several bowel movements without relief of pain. She was advised by her PCP to return to the ER on 05/24/2018. Her WBC count had increased to 18,[address] abdomen/pelvis showed possible small-bowel obstruction versus possible appendicitis. She was then transferred to [facility] for surgical evaluation. She was dosed empirically with Zosyn. She was taken to the OR yesterday and underwent a laparoscopic appendectomy and exploration. She was found to have diffuse inflammatory change involving the deep pelvis, no obvious abscess and secondary inflamed appendix. Intraoperative cultures were obtained. She was seen by Dr. Edward who had ordered STD testing including HIV screen. He had added doxycycline and metronidazole. Currently, the patient says her abdomen feels distended and sore. She denies having any fevers, chills or sweats. Denies having any nausea, vomiting or diarrhea or urinary symptoms. Her stools have been moving regularly. She is sexually active. She has been with 2 partners and has not used protection consistently. She reports pain with intercourse. Denies vaginal bleeding or discharge. She was treated for chlamydia about 6 years ago. Her HIV status is unknown. She does not use control and her menstrual cycles have been regular. PAST MEDICAL HISTORY: Nephrotic syndrome, currently in remission; bronchial asthma, obstructive sleep apnea for which she is on CPAP; dysphagia and esophageal stricture, headaches. PAST SURGICAL HISTORY: Kidney biopsy, esophageal stricture dilatation and surgery for squint. SOCIAL HISTORY: The patient is single and lives at home. She is a nonsmoker. She does not drink alcohol or use recreational drugs. She is a paraprofessional aide teacher. FAMILY HISTORY: Noncontributory. ALLERGIES: SULFA CAUSING HIVES, ITCHING AND SWELLING. MEDICATIONS: Zosyn, doxycycline, metronidazole, probiotics, one-time dose of dexamethasone on 05/25/2018. Other medications are available and have been reviewed on the JUL. REVIEW OF SYSTEMS: Per HPI, otherwise all other review of systems are negative. PHYSICAL EXAMINATION: VITAL SIGNS: Temperature is 98.4, blood pressure 116/67, heart rate 58, respiratory rate 18, pulse oximetry is 95% on 1 liter, BMI 31.6. GENERAL: The patient is propped up in bed, alert, in no apparent distress. HEENT: Pupils equally round, normal conjunctivae. Oral cavity, pharynx pink. No thrush. NECK: Supple. LUNGS: Clear to auscultation. HEART: S1 and S2. ABDOMEN: Distended, soft, mildly tender, quiet bowel sounds. EXTREMITIES: No gross edema or cyanosis. SKIN: Warm without generalized rash. NEUROLOGIC: Alert and oriented x 3. LABORATORY DATA: Today's WBC 17.3 from 13.1, hemoglobin 11.9, platelet count 286,000. Sodium 141, potassium 3.4, creatinine 0.9, BUN 20, glucose 64, total bilirubin 1.0, AST 12, ALT 12, albumin 2.2. Urine test negative. Chest pounds anemia. Treponema pallidum antibody nonreactive. Chlamydia/gonorrhea PCR, urine and HIV antibody screen pending. Intraoperative cultures pending. CT abdomen/pelvis per HPI. IMPRESSION: 1. Acute onset abdominal pain, status post laparoscopic appendectomy, exploration on 05/25/2018. Diffuse inflammatory change involving the deep pelvis without obvious abscess and secondary inflamed appendix found. 2. Leukocytosis, multifactorial due to infection, surgery and preop steroids. 3. SULFA ALLERGY CAUSING HIVES, ITCHING AND SWELLING. 4. Recent urinary tract infection diagnosed at [facility] and treated with Cipro. 5. History of unprotected sex and chlamydia. 6. Nephrotic syndrome in remission. PLAN: Chlamydia/gonorrhea PCR, urine and HIV antibody screen are pending. Continue the Zosyn and doxycycline as well as metronidazole per INTELLIGENCE OPERATIONS. Continue to monitor laboratory values, temperature and pain level. Safe sex practices were discussed. We will continue to follow along. Thank you, Dr. Paredes for asking us to participate in this patient's care. Should you have further questions or concerns, please call. The patient is seen and examined and plan of care implemented by Dr. Weston Saucedo. WESTON SAUCEDO MD DR: GODFREY/radha JOB#: [id number] / [id number]
[2018-05-27] MEDS: POTASSIUM CL 40MEQ D5-0.45NACL 1,000 ML IV SCH (16:16)
[2018-05-27 19:15] VITALS: BP 103/54
[2018-05-27] MEDS ORDERED: HYDROcodone/APAP 7.5/325MG 1 TAB TABLET PO PRN (19:15)
[2018-05-27] MEDS: HYDROcodone/APAP 7.5/325MG 1 TAB TABLET PO PRN (19:43)
[2018-05-27 23:11] VITALS: BP 103/51
--- NOTE | 2018-05-28 01:54 | PN ---
DATE: SUBJECTIVE: The patient is resting slightly propped up in bed with BiPAP machine on. She stated that on questioning her that she had passed gas, but she was unable to have any bowel movement. She was seen in consultation by the software test manager and was started on Flagyl as well as doxycycline, to continue with Zosyn. She is on a full liquid diet. PHYSICAL EXAMINATION: GENERAL: When I examined her, she looked well and was clearly in no apparent respiratory distress, pale, but no jaundice, cyanosis or thyromegaly. No jugular venous distention. No limb edema. VITAL SIGNS: Her heart rate was 68, blood pressure was 112/72, temperature was 98.5, respiratory rate was 18 and oxygen saturation was 96%. HEAD, EYES, EARS, NOSE AND THROAT: Showed normocephalic, atraumatic. NECK: Supple. HEART: Showed normal first and second heart sounds with no gallop, rub or murmur. CHEST: Clear to auscultation. No crepitation or rhonchi. ABDOMEN: Distended, soft, nontender. No guarding or rigidity. No organomegaly. Hernial orifice intact. Bowel sounds normal. She still continued to have tenderness in the right lower quadrant. NEUROLOGIC: She is awake, alert, responding appropriately. Her intake was 1590, output was 200. LABORATORY DATA: Today's lab is still pending at the time of this dictation. ASSESSMENT: Diffuse inflammatory changes consistent with the pelvic inflammatory disease with no obvious abscess. Secondarily inflamed appendix, status post laparoscopic appendectomy and exploration. Other medical problems include: A. Bronchial asthma. B. Obstructive sleep apnea, on CPAP. C. Nephrotic syndrome, in remission. D. Hypokalemia. PLAN: To continue with IV fluid, continue with IV antibiotic in the form of metronidazole, doxycycline and Zosyn. Continue with full liquid diet, continue with pain management. LAUREN MAYA MD DR: RUPERT/radha JOB#: [id number] / [id number]
[2018-05-28] MEDS: HYDROcodone/APAP 7.5/325MG 1 TAB TABLET PO PRN ×4 (02:59→18:24)
[2018-05-28] MEDS: POTASSIUM CL 40MEQ D5-0.45NACL 1,000 ML IV SCH ×2 (03:00→12:15)
[2018-05-28 03:03] VITALS: BP 108/56
[2018-05-28] MEDS: PIPERACILLIN/TAZOBACTAM 3.375 GM in IV NORMAL SALINE 50ML 50 ML IV SCH ×5 (06:16→18:13)
[2018-05-28 07:00] VITALS: BP 112/51
[2018-05-28] MEDS: DOCUSATE SODIUM 100 MG CAPSULE. PO SCH ×2 (08:44→21:31)
[2018-05-28] MEDS: LACTOBACILLUS RHAMNOSUS GG 1 CAPSULE. PO SCH ×2 (08:44→21:31)
[2018-05-28] MEDS: ENOXAPARIN 40 MG/0.4 ML SYRINGE. SQ SCH (08:45)
[2018-05-28] MEDS: DOXYCYCLINE HYCLATE 100 MG in IV DEXTROSE 5% 100ML 100 ML IV SCH ×2 (08:56→21:30)
--- NOTE | 2018-05-28 09:08 | PDOC ---
PROGRESS NOTES Subjective Subjective significant pain Objective Objective Vital Signs Date Time Temp Pulse Resp B/P (MAP) Pulse Ox O2 Delivery O2 Flow Rate FiO2 05/28/18 08:43 96 Room Air 05/28/18 07:00 98.5 53 18 112/51 (71) 98.5 05/28/18 02:59 1.0 Intake and Output 05/28/18 07:01 Intake Total 440 ml Balance 440 ml Intake Oral 440 ml # Voids 2 Physical Exam Abdomen: Soft (tender with palpation) Plan Plan of Care supportive care, no new recs Comment Review of Relevant I have reviewed the following items fco (where applicable) has been applied. Labs Laboratory Tests Test 05/26/18 09:45 05/27/18 10:44 Treponema pallidum Antibody Nonreactive (Nonreactive) HIV (1&2) Antibody Screen Nonreactive (Nonreactive) White Blood Count 12.6 x10^3/uL (4.0-11.0) Red Blood Count 3.91 x10^6/uL (3.50-5.40) Hemoglobin 11.7 g/dL (12.0-15.5) Hematocrit 34.2 % (36.0-47.0) Mean Corpuscular Volume 87 fL (79-100) Mean Corpuscular Hemoglobin 30 pg (25-35) Mean Corpuscular Hemoglobin Concent 34 g/dL (31-37) Red Cell Distribution Width 14.2 % (11.5-14.5) Platelet Count 309 x10^3/uL (140-400) Neutrophils (%) (Auto) 69 % (31-73) Lymphocytes (%) (Auto) 18 % (24-48) Monocytes (%) (Auto) 9 % (0-9) Eosinophils (%) (Auto) 4 % (0-3) Basophils (%) (Auto) 0 % (0-3) Neutrophils # (Auto) 8.7 x10^3uL (1.8-7.7) Lymphocytes # (Auto) 2.2 x10^3/uL (1.0-4.8) Monocytes # (Auto) 1.1 x10^3/uL (0.0-1.1) Eosinophils # (Auto) 0.5 x10^3/uL (0.0-0.7) Basophils # (Auto) 0.0 x10^3/uL (0.0-0.2) Sodium Level 140 mmol/L (136-145) Potassium Level 3.2 mmol/L (3.5-5.1) Chloride Level 102 mmol/L (98-107) Carbon Dioxide Level 28 mmol/L (21-32) Anion Gap 10 (6-14) Blood Urea Nitrogen 11 mg/dL (7-20) Creatinine 0.9 mg/dL (0.6-1.0) Estimated GFR (Cockcroft-Gault) 91.6 Glucose Level 104 mg/dL (70-99) Calcium Level 8.6 mg/dL (8.5-10.1) Laboratory Tests Test 05/27/18 10:44 White Blood Count 12.6 x10^3/uL (4.0-11.0) Red Blood Count 3.91 x10^6/uL (3.50-5.40) Hemoglobin 11.7 g/dL (12.0-15.5) Hematocrit 34.2 % (36.0-47.0) Mean Corpuscular Volume 87 fL (79-100) Mean Corpuscular Hemoglobin 30 pg (25-35) Mean Corpuscular Hemoglobin Concent 34 g/dL (31-37) Red Cell Distribution Width 14.2 % (11.5-14.5) Platelet Count 309 x10^3/uL (140-400) Neutrophils (%) (Auto) 69 % (31-73) Lymphocytes (%) (Auto) 18 % (24-48) Monocytes (%) (Auto) 9 % (0-9) Eosinophils (%) (Auto) 4 % (0-3) Basophils (%) (Auto) 0 % (0-3) Neutrophils # (Auto) 8.7 x10^3uL (1.8-7.7) Lymphocytes # (Auto) 2.2 x10^3/uL (1.0-4.8) Monocytes # (Auto) 1.1 x10^3/uL (0.0-1.1) Eosinophils # (Auto) 0.5 x10^3/uL (0.0-0.7) Basophils # (Auto) 0.0 x10^3/uL (0.0-0.2) Sodium Level 140 mmol/L (136-145) Potassium Level 3.2 mmol/L (3.5-5.1) Chloride Level 102 mmol/L (98-107) Carbon Dioxide Level 28 mmol/L (21-32) Anion Gap 10 (6-14) Blood Urea Nitrogen 11 mg/dL (7-20) Creatinine 0.9 mg/dL (0.6-1.0) Estimated GFR (Cockcroft-Gault) 91.6 Glucose Level 104 mg/dL (70-99) Calcium Level 8.6 mg/dL (8.5-10.1) Microbiology 05/25/18 Anaerobic/Aerobic Culture, Resulted Pending 05/25/18 Anaerobic Culture Result 1 (LEO), Resulted Pending 05/25/18 Aerobic Culture, Resulted Pending 05/25/18 Aerobic Culture Result 1 (LEO), Resulted Pending 05/25/18 Gram Stain - Final, Resulted 05/25/18 Gram Stain Result 1 (LEO) - Final, Resulted 05/25/18 Gram Stain Result 2 (LEO) - Final, Resulted Medications Current Medications Sodium Chloride (Normal Saline Flush) 3 ml PRN DAILY PRN IV AFTER MEDS AND BLOOD DRAWS; Start 05/24/18 at 14:45; Stop 05/26/18 at 10:10; Status DC Ondansetron HCl (Zofran) 4 mg PRN Q4HRS PRN IV NAUSEA/VOMITING; Start at 14:45; Stop 05/25/18 at 18:02; Status DC Sodium Chloride 1,000 ml @ 100 mls/hr Q10H IV Last administered on 05/26/18at 06:15; Start 05/24/18 at 16:00; Stop 05/26/18 at 08:41; Status DC Fentanyl Citrate (Fentanyl 2ml Vial) 50 mcg PRN Q3HRS PRN IV SEVERE PAIN Last administered on 05/26/18at 21:04; Start 05/24/18 at 14:45 Piperacillin Sod/ Tazobactam Sod 3.375 gm/Sodium Chloride 50 ml @ 100 mls/hr Q6HRS IV Last administered on 05/28/18at 06:16; Start 05/24/18 at 18:00 Ondansetron HCl (Zofran) 4 mg PRN Q6HRS PRN IV NAUSEA/VOMITING; Start at 15:15; Stop 05/25/18 at 18:02; Status DC Fentanyl Citrate (Fentanyl 2ml Vial) 25 mcg PRN Q5MIN PRN IV MILD PAIN; Start 05/25/18 at 15:15; Stop 05/26/18 at 08:43; Status DC Fentanyl Citrate (Fentanyl 2ml Vial) 50 mcg PRN Q5MIN PRN IV MODERATE TO SEVERE PAIN Last administered on 05/25/18at 18:21; Start 05/25/18 at 15:15; Stop 05/26/18 at 08:43; Status DC Ringer's Solution 1,000 ml @ 30 mls/hr Q24H IV Last administered on at 16:10; Start 05/25/18 at 15:08; Stop 05/26/18 at 03:07; Status DC Lidocaine HCl (Xylocaine-Mpf 1% 2ml Vial) 2 ml PRN 1X PRN ID PRIOR TO IV START ; Start 05/25/18 at 15:15; Stop 05/26/18 at 08:43; Status DC Prochlorperazine Edisylate (Compazine) 5 mg PACU PRN PRN IV NAUSEA, MRX1; Start 05/25/18 at 15:15; Stop 05/26/18 at 08:43; Status DC Dexamethasone Sodium Phosphate (Decadron) 20 mg STK-MED ONCE .ROUTE ; Start at 15:29; Stop 05/25/18 at 15:30; Status DC Ondansetron HCl (Zofran) 4 mg STK-MED ONCE .ROUTE ; Start 05/25/18 at 15:29; Stop 05/25/18 at 15:31; Status DC Propofol 20 ml @ As Directed STK-MED ONCE IV ; Start 05/25/18 at 15:29; Stop 05/25/18 at 15:31; Status DC Lidocaine HCl (Lidocaine Pf 2% Vial) 5 ml STK-MED ONCE .ROUTE ; Start 05/25/18 at 15:29; Stop 05/25/18 at 15:31; Status DC Ketorolac Tromethamine (Toradol For Or Only) 30 mg STK-MED ONCE INJ ; Start at 15:29; Stop 05/25/18 at 15:31; Status DC Fentanyl Citrate (Fentanyl 2ml Vial) 100 mcg STK-MED ONCE .ROUTE ; Start at 15:29; Stop 05/25/18 at 15:31; Status DC Rocuronium Schaller (Zemuron) 50 mg STK-MED ONCE .ROUTE ; Start 05/25/18 at 15: 29; Stop 05/25/18 at 15:31; Status DC Midazolam HCl (Versed) 2 mg STK-MED ONCE .ROUTE ; Start 05/25/18 at 15:46; Stop 05/25/18 at 15:48; Status DC Bupivacaine HCl/ Epinephrine Bitart (Sensorcain-Mpf Epi 0.5%-[id number]) 30 ml STK -MED ONCE .ROUTE Last administered on 05/25/18at 16:50; Start 05/25/18 at 16: 03; Stop 05/25/18 at 16:04; Status DC Famotidine (Pepcid Vial) 20 mg STK-MED ONCE .ROUTE ; Start 05/25/18 at 16:37; Stop 05/25/18 at 16:39; Status DC Glycopyrrolate (Robinul) 1 mg STK-MED ONCE .ROUTE ; Start 05/25/18 at 17:14; Stop 05/25/18 at 17:15; Status DC Neostigmine Methylsulfate (Neostigmine Methylsulfate) 5 mg STK-MED ONCE .ROUTE ; Start 05/25/18 at 17:14; Stop 05/25/18 at 17:15; Status DC Sevoflurane (Ultane) 30 ml STK-MED ONCE IH ; Start 05/25/18 at 17:15; Stop at 17:16; Status DC Enoxaparin Sodium (Lovenox 40mg Syringe) 40 mg Q24H SQ Last administered on at 09:42; Start 05/26/18 at 09:00 Sodium Chloride (Normal Saline Flush) 3 ml QSHIFT PRN IV AFTER MEDS AND BLOOD DRAWS; Start 05/25/18 at 18:00 Ringer's Solution 1,000 ml @ 100 mls/hr Q10H IV ; Start 05/25/18 at 17:58; Stop 05/26/18 at 08:41; Status DC Acetaminophen/ Hydrocodone Bitart (Lortab 5/325) 1 tab PRN Q4HRS PRN PO MILD PAIN Last administered on 05/27/18 18:02; Start 05/25/18 at 18:00; Stop at 19:14; Status DC Ketorolac Tromethamine (Toradol 15mg Vial) 15 mg PRN Q6HRS PRN IV MILD PAIN Last administered on 05/27/18 21:50; Start 05/25/18 at 18:00; Stop 05/30/18 at 17:59 Hydromorphone HCl (Dilaudid) 0.2 mg PRN Q1HR PRN IV MODERATE PAIN Last administered on 05/26/18at 03:50; Start 05/25/18 at 18:00 Docusate Sodium (Colace) 100 mg BID PO Last administered on 05/28/18 08:44; Start 05/25/18 at 21:00 Ondansetron HCl (Zofran) 4 mg PRN Q6HRS PRN IV NAUESA, 1ST CHOICE; Start 05/25 at 18:00 Potassium Chloride/Dextrose/ Sod Cl 1,000 ml @ 75 mls/hr [id number] IV Last administered on 05/28/18 03:00; Start 05/26/18 at 09:00 Metronidazole 100 ml @ 100 mls/hr Q12HR IV Last administered on 05/28/18 08:51 ; Start 05/26/18 at 09:00 Doxycycline Hyclate 100 mg/ Dextrose 100 ml @ 50 mls/hr Q12HR IV Last administered on 05/28/18 08:56; Start 05/26/18 at 10:30 Diphenhydramine HCl (Benadryl) 25 mg PRN Q6HRS PRN IVP ITCHING Last administered on 05/26/18at 10:53; Start 05/26/18 at 10:45 Lactobacillus Rhamnosus (Culturelle) 1 cap BID PO Last administered on 08:44; Start 05/26/18 at 21:00 Acetaminophen/ Hydrocodone Bitart (Lortab 7.5/325) 1 tab PRN Q4HRS PRN PO MODERATE PAIN; Start 05/27/18 at 19:15 Acetaminophen/ Hydrocodone Bitart (Lortab 7.5/325) 2 tab PRN Q4HRS PRN PO SEVERE PAIN Last administered on 1/1/19at 08:43; Start 05/27/18 at 19:15 Vitals/I & O Vital Sign - Last 24 Hours 05/27/18 05/27/18 05/27/18 05/27/18 11:00 14:07 15:00 18:02 Temp 87.4 97.2 87.4 97.2 Pulse 67 60 Resp 18 16 18 16 B/P (MAP) 123/54 (77) 112/42 (65) Pulse Ox 95 97 O2 Delivery Room Air Room Air Room Air Room Air 05/27/18 05/27/18 05/27/18 05/27/18 19:02 19:15 19:43 20:00 Temp 98.6 98.6 Pulse 65 Resp 20 18 20 B/P (MAP) 103/54 (70) Pulse Ox 96 99 97 O2 Delivery Room Air Room Air Room Air Room Air 05/27/18 05/28/18 05/28/18 05/28/18 23:11 02:59 03:03 04:00 Temp 98.1 98.1 98.1 98.1 Pulse 51 60 Resp 16 20 16 20 B/P (MAP) 103/51 (68) 108/56 (73) Pulse Ox 96 96 95 95 O2 Delivery Room Air Room Air Room Air Room Air O2 Flow Rate 1.0 05/28/18 05/28/18 07:00 08:43 Temp 98.5 98.5 Pulse 53 Resp 18 B/P (MAP) 112/51 (71) Pulse Ox 96 96 O2 Delivery Room Air Room Air Intake and Output 05/27/18 05/27/18 05/28/18 15:01 23:01 07:01 Intake Total 440 ml Balance 440 ml BRYAN CLARK MD May 28, 2018 09:08
--- NOTE | 2018-05-28 10:44 | PDOC ---
SURGICAL PROGRESS NOTE Subjective Pt. with c/o abd pain 01/04 this am. SHe is unable to tolerate solids at this time. No fever, chills, night sweats, CP or SOB. Vital Signs Vital Signs Date Time Temp Pulse Resp B/P (MAP) Pulse Ox O2 Delivery O2 Flow Rate FiO2 05/28/18 09:53 Room Air 05/28/18 08:43 96 05/28/18 07:00 98.5 53 18 112/51 (71) 98.5 05/28/18 02:59 1.0 I&O Intake and Output 05/28/18 07:01 Intake Total 440 ml Balance 440 ml Intake Oral 440 ml # Voids 2 PATIENT HAS A VASQUEZ: No General: Alert, Oriented X3, Cooperative HEENT: Atraumatic Lungs: Clear to auscultation Heart: Regular rate Abdomen: Normal bowel sounds, Soft, No masses, Other (moderate tenderness to palpation. No acute abdomen.) Psych/Mental Status: Mental status NL Labs Laboratory Tests Test 05/27/18 10:44 White Blood Count 12.6 x10^3/uL (4.0-11.0) Red Blood Count 3.91 x10^6/uL (3.50-5.40) Hemoglobin 11.7 g/dL (12.0-15.5) Hematocrit 34.2 % (36.0-47.0) Mean Corpuscular Volume 87 fL (79-100) Mean Corpuscular Hemoglobin 30 pg (25-35) Mean Corpuscular Hemoglobin Concent 34 g/dL (31-37) Red Cell Distribution Width 14.2 % (11.5-14.5) Platelet Count 309 x10^3/uL (140-400) Neutrophils (%) (Auto) 69 % (31-73) Lymphocytes (%) (Auto) 18 % (24-48) Monocytes (%) (Auto) 9 % (0-9) Eosinophils (%) (Auto) 4 % (0-3) Basophils (%) (Auto) 0 % (0-3) Neutrophils # (Auto) 8.7 x10^3uL (1.8-7.7) Lymphocytes # (Auto) 2.2 x10^3/uL (1.0-4.8) Monocytes # (Auto) 1.1 x10^3/uL (0.0-1.1) Eosinophils # (Auto) 0.5 x10^3/uL (0.0-0.7) Basophils # (Auto) 0.0 x10^3/uL (0.0-0.2) Sodium Level 140 mmol/L (136-145) Potassium Level 3.2 mmol/L (3.5-5.1) Chloride Level 102 mmol/L (98-107) Carbon Dioxide Level 28 mmol/L (21-32) Anion Gap 10 (6-14) Blood Urea Nitrogen 11 mg/dL (7-20) Creatinine 0.9 mg/dL (0.6-1.0) Estimated GFR (Cockcroft-Gault) 91.6 Glucose Level 104 mg/dL (70-99) Calcium Level 8.6 mg/dL (8.5-10.1) Laboratory Tests Test 05/27/18 10:44 White Blood Count 12.6 x10^3/uL (4.0-11.0) Red Blood Count 3.91 x10^6/uL (3.50-5.40) Hemoglobin 11.7 g/dL (12.0-15.5) Hematocrit 34.2 % (36.0-47.0) Mean Corpuscular Volume 87 fL (79-100) Mean Corpuscular Hemoglobin 30 pg (25-35) Mean Corpuscular Hemoglobin Concent 34 g/dL (31-37) Red Cell Distribution Width 14.2 % (11.5-14.5) Platelet Count 309 x10^3/uL (140-400) Neutrophils (%) (Auto) 69 % (31-73) Lymphocytes (%) (Auto) 18 % (24-48) Monocytes (%) (Auto) 9 % (0-9) Eosinophils (%) (Auto) 4 % (0-3) Basophils (%) (Auto) 0 % (0-3) Neutrophils # (Auto) 8.7 x10^3uL (1.8-7.7) Lymphocytes # (Auto) 2.2 x10^3/uL (1.0-4.8) Monocytes # (Auto) 1.1 x10^3/uL (0.0-1.1) Eosinophils # (Auto) 0.5 x10^3/uL (0.0-0.7) Basophils # (Auto) 0.0 x10^3/uL (0.0-0.2) Sodium Level 140 mmol/L (136-145) Potassium Level 3.2 mmol/L (3.5-5.1) Chloride Level 102 mmol/L (98-107) Carbon Dioxide Level 28 mmol/L (21-32) Anion Gap 10 (6-14) Blood Urea Nitrogen 11 mg/dL (7-20) Creatinine 0.9 mg/dL (0.6-1.0) Estimated GFR (Cockcroft-Gault) 91.6 Glucose Level 104 mg/dL (70-99) Calcium Level 8.6 mg/dL (8.5-10.1) Assessment/Plan A: 1. POD#3 s/p appendectomy 2. PID : improving P: Continue IV abx. Anticipate d/c home when tolerating regular diet and pain improves. TOBY JOHNS Jr, MD May 28, 2018 10:44
[2018-05-28 11:00] VITALS: BP 102/57
--- NOTE | 2018-05-28 11:41 | PDOC ---
Infectious Disease Note Subjective Subjective Better today. ate some. Has ambulated + flatus and small BM GI soft diet, not very hungry Denies F/C/N/V/D/SOA Fiance/mom visiting ROS ROS o/w neg Vital Sign Vital Signs Vital Signs Date Time Temp Pulse Resp B/P (MAP) Pulse Ox O2 Delivery O2 Flow Rate FiO2 05/28/18 11:00 98.6 41 18 102/57 (72) 99 Room Air 98.6 05/28/18 02:59 1.0 Physical Exam PHYSICAL EXAM GENERAL: NAD, looks better HENT: Oral cavity clear NECK: Supple LUNGS: Clear CV: S1 S2 ABDOMEN: Less Distended, soft, tender, + BS. Small dressing dry EXT: No gross edema SKIN: warm without rash OFFICE TECHNOLOGIST: Alert, oriented PIV ok Labs Micro Microbiology 05/25/18 Anaerobic/Aerobic Culture, Resulted Pending 05/25/18 Anaerobic Culture Result 1 (LEO), Resulted Pending 05/25/18 Aerobic Culture, Resulted Pending 05/25/18 Aerobic Culture Result 1 (LEO), Resulted Pending 05/25/18 Gram Stain - Final, Resulted 05/25/18 Gram Stain Result 1 (LEO) - Final, Resulted 05/25/18 Gram Stain Result 2 (ELO) - Final, Resulted Objective Assessment Acute onset abdominal pain s/p lap appendectomy, exploration, 05/25; Diffuse inflammatory change involving the deep pelvis, no obvious abscess, secondarily inflamed appendix found - better today Leukocytosis, multifactorial (infection, surgery, pre-op steroids) Sulfa allergy - hives and itching Recent UTI diagnosed at [facility]. Rx cipro h/x unprotected sex and chlamydia Nephrotic syndrome Plan Plan of Care Chlam/GC PCR UR pending. - Cults neg Syphilis - neg HIV ab screen nonreactive Labs in am Zosyn, doxy D/c Flagyl - help with appetite probiotics Monitor labs/temp/pain level Pain management per primary D/w Mom and YOLANDE Pleitez MD May 28, 2018 11:41
[2018-05-28] MEDS: KETOROLAC 15 MG/ML VIAL. IV PRN ×2 (12:09→18:16)
[2018-05-28 14:00] LABS: CALCIUM 8.7 mg/dL (8.5-10.1); CREATININE 0.8 mg/dL (0.6-1.0); GFR 104.9
[2018-05-28 14:07] LABS: BASO # 0.1 x10^3/uL (0.0-0.2); BASO % 1 % (0-3); EOS # 0.5 x10^3/uL (0.0-0.7); EOS % 4 % (0-3); HEMOGLOBIN 12.8 g/dL (12.0-15.5); LYMPH # 2.2 x10^3/uL (1.0-4.8); LYMPH % 20 % (24-48); MEAN CORPUSCULAR HEMOGLOBIN 30 pg (25-35); MEAN CORPUSCULAR HGB CONC 34 g/dL (31-37); MEAN CORPUSCULAR VOLUME 88 fL (79-100); MONO # 0.9 x10^3/uL (0.0-1.1); MONO % 8 % (0-9); NEUT # 7.6 x10^3uL (1.8-7.7); NEUT % 67 % (31-73); PLATELET COUNT 325 x10^3/uL (140-400); RED BLOOD COUNT 4.32 x10^6/uL (3.50-5.40); RED CELL DISTRIBUTION WIDTH 14.1 % (11.5-14.5); WHITE BLOOD COUNT 11.2 x10^3/uL (4.0-11.0)
[2018-05-28 15:00] VITALS: BP 115/50
[2018-05-28 16:01] LABS: % ATYL 1 % (0-0); % EOS 4 % (0-5); NUCLEATED RBC 1
[2018-05-28 16:03] LABS: % METAS 2 % (0-0); % MYELOS 1 % (0-0)
[2018-05-28 16:04] LABS: % BANDS 5 % (0-9); % LYMPHS 25 % (24-48); % MONOS 5 % (0-10); % SEGS 57 % (35-66); PLT ESTIMATE ADEQUATE (ADEQUATE)
[2018-05-28 19:00] VITALS: BP 110/62
--- NOTE | 2018-05-28 22:50 | PN ---
DATE: 05/28/2018 SUBJECTIVE: The patient is resting, slightly propped up in her recliner, in no apparent distress. She continued to have pain, although it seems to be much better controlled. She has been up and about, has had a bowel movement yesterday. The nursing staff stated that she definitely much improved. PHYSICAL EXAMINATION: GENERAL: When I examined her, she looked well and was clearly in no apparent respiratory distress, slightly pale. No jaundice, cyanosis or thyromegaly. No jugular venous distension. No lower limb edema. VITAL SIGNS: Her heart rate was 53, blood pressure 112/51, temperature was 98.5, respiratory rate was 18 and oxygen saturation was 96%. HEAD, EYES, EARS, NOSE AND THROAT: Showed normocephalic and atraumatic. NECK: Supple. HEART: Showed normal first and second sounds. No gallop or murmur. CHEST: Clear to auscultation. No crepitation or rhonchi. ABDOMEN: Distended, soft with tenderness mostly in the right lower quadrant. NEUROLOGICAL: She is awake and alert and moves all extremities without difficulty. She ambulates without assistance or assistive devices. Her intake was 418 and output was recorded. LABORATORY DATA: Today, labs are still pending at the time of this dictation. Her treponema pallidum antibody is nonreactive. HIV 1 and 2 antibody screen was negative. ASSESSMENT: Diffuse inflammatory changes consistent pelvic inflammatory disease with no obvious abscess secondary to inflamed appendix, status post laparoscopic appendectomy exploration and other medical problems include: A. Bronchial asthma. B. Obstructive sleep apnea. C. Nephrotic syndrome, in remission. D. Hypokalemia. PLAN: Continue with IV fluid. Continue with IV antibiotic in the form of doxycycline, Zosyn and metronidazole. Continue with advance diet as tolerated. Continue with pain management. LAUREN MAYA MD DR: RUPERT/radha JOB#: [id number] / [id number]
[2018-05-28 23:00] VITALS: BP 109/37
[2018-05-29] MEDS: PIPERACILLIN/TAZOBACTAM 3.375 GM in IV NORMAL SALINE 50ML 50 ML IV SCH ×2 (00:44→05:41)
[2018-05-29 03:00] VITALS: BP 118/61
[2018-05-29] MEDS: POTASSIUM CL 40MEQ D5-0.45NACL 1,000 ML IV SCH ×2 (04:03→17:00)
[2018-05-29 07:00] VITALS: BP 130/67
[2018-05-29] MEDS: KETOROLAC 15 MG/ML VIAL. IV PRN (07:21)
--- NOTE | 2018-05-29 08:39 | PDOC ---
PROGRESS NOTES Subjective Subjective seems a bit more comfortable Objective Objective Vital Signs Date Time Temp Pulse Resp B/P (MAP) Pulse Ox O2 Delivery O2 Flow Rate FiO2 05/29/18 07:00 98.8 70 18 130/67 (88) 96 Room Air 98.8 05/28/18 02:59 1.0 Intake and Output 05/29/18 07:01 Intake Total 390 ml Balance 390 ml Intake Oral 390 ml # Voids 1 Physical Exam Abdomen: Soft (tender at incisions) Assessment Assessment S/P laparoscopy, appy Plan Plan of Care No new recs, ?discharge later today or tomorrow if ok with primary and can convert to PO abx; pain script in chart Comment Review of Relevant I have reviewed the following items fco (where applicable) has been applied. Labs Laboratory Tests Test 05/27/18 10:44 05/28/18 13:35 White Blood Count 12.6 x10^3/uL (4.0-11.0) 11.2 x10^3/uL (4.0-11.0) Red Blood Count 3.91 x10^6/uL (3.50-5.40) 4.32 x10^6/uL (3.50-5.40) Hemoglobin 11.7 g/dL (12.0-15.5) 12.8 g/dL (12.0-15.5) Hematocrit 34.2 % (36.0-47.0) 38.0 % (36.0-47.0) Mean Corpuscular Volume 87 fL (79-100) 88 fL (79-100) Mean Corpuscular Hemoglobin 30 pg (25-35) 30 pg (25-35) Mean Corpuscular Hemoglobin Concent 34 g/dL (31-37) 34 g/dL (31-37) Red Cell Distribution Width 14.2 % (11.5-14.5) 14.1 % (11.5-14.5) Platelet Count 309 x10^3/uL (140-400) 325 x10^3/uL (140-400) Neutrophils (%) (Auto) 69 % (31-73) 67 % (31-73) Lymphocytes (%) (Auto) 18 % (24-48) 20 % (24-48) Monocytes (%) (Auto) 9 % (0-9) 8 % (0-9) Eosinophils (%) (Auto) 4 % (0-3) 4 % (0-3) Basophils (%) (Auto) 0 % (0-3) 1 % (0-3) Neutrophils # (Auto) 8.7 x10^3uL (1.8-7.7) 7.6 x10^3uL (1.8-7.7) Lymphocytes # (Auto) 2.2 x10^3/uL (1.0-4.8) 2.2 x10^3/uL (1.0-4.8) Monocytes # (Auto) 1.1 x10^3/uL (0.0-1.1) 0.9 x10^3/uL (0.0-1.1) Eosinophils # (Auto) 0.5 x10^3/uL (0.0-0.7) 0.5 x10^3/uL (0.0-0.7) Basophils # (Auto) 0.0 x10^3/uL (0.0-0.2) 0.1 x10^3/uL (0.0-0.2) Sodium Level 140 mmol/L (136-145) 140 mmol/L (136-145) Potassium Level 3.2 mmol/L (3.5-5.1) 4.0 mmol/L (3.5-5.1) Chloride Level 102 mmol/L (98-107) 103 mmol/L (98-107) Carbon Dioxide Level 28 mmol/L (21-32) 29 mmol/L (21-32) Anion Gap 10 (6-14) 8 (6-14) Blood Urea Nitrogen 11 mg/dL (7-20) 8 mg/dL (7-20) Creatinine 0.9 mg/dL (0.6-1.0) 0.8 mg/dL (0.6-1.0) Estimated GFR (Cockcroft-Gault) 91.6 104.9 Glucose Level 104 mg/dL (70-99) 87 mg/dL (70-99) Calcium Level 8.6 mg/dL (8.5-10.1) 8.7 mg/dL (8.5-10.1) Segmented Neutrophils % 57 % (35-66) Band Neutrophils % 5 % (0-9) Lymphocytes % 25 % (24-48) Atypical Lymphocytes % (Manual) 1 % (0-0) Monocytes % 5 % (0-10) Eosinophils % 4 % (0-5) Metamyelocytes % 2 % (0-0) Myelocytes % 1 % (0-0) Nucleated Red Blood Cells 1 Platelet Estimate Adequate (ADEQUATE) Laboratory Tests Test 05/28/18 13:35 White Blood Count 11.2 x10^3/uL (4.0-11.0) Red Blood Count 4.32 x10^6/uL (3.50-5.40) Hemoglobin 12.8 g/dL (12.0-15.5) Hematocrit 38.0 % (36.0-47.0) Mean Corpuscular Volume 88 fL (79-100) Mean Corpuscular Hemoglobin 30 pg (25-35) Mean Corpuscular Hemoglobin Concent 34 g/dL (31-37) Red Cell Distribution Width 14.1 % (11.5-14.5) Platelet Count 325 x10^3/uL (140-400) Neutrophils (%) (Auto) 67 % (31-73) Lymphocytes (%) (Auto) 20 % (24-48) Monocytes (%) (Auto) 8 % (0-9) Eosinophils (%) (Auto) 4 % (0-3) Basophils (%) (Auto) 1 % (0-3) Neutrophils # (Auto) 7.6 x10^3uL (1.8-7.7) Lymphocytes # (Auto) 2.2 x10^3/uL (1.0-4.8) Monocytes # (Auto) 0.9 x10^3/uL (0.0-1.1) Eosinophils # (Auto) 0.5 x10^3/uL (0.0-0.7) Basophils # (Auto) 0.1 x10^3/uL (0.0-0.2) Segmented Neutrophils % 57 % (35-66) Band Neutrophils % 5 % (0-9) Lymphocytes % 25 % (24-48) Atypical Lymphocytes % (Manual) 1 % (0-0) Monocytes % 5 % (0-10) Eosinophils % 4 % (0-5) Metamyelocytes % 2 % (0-0) Myelocytes % 1 % (0-0) Nucleated Red Blood Cells 1 Platelet Estimate Adequate (ADEQUATE) Sodium Level 140 mmol/L (136-145) Potassium Level 4.0 mmol/L (3.5-5.1) Chloride Level 103 mmol/L (98-107) Carbon Dioxide Level 29 mmol/L (21-32) Anion Gap 8 (6-14) Blood Urea Nitrogen 8 mg/dL (7-20) Creatinine 0.8 mg/dL (0.6-1.0) Estimated GFR (Cockcroft-Gault) 104.9 Glucose Level 87 mg/dL (70-99) Calcium Level 8.7 mg/dL (8.5-10.1) Microbiology 05/25/18 Anaerobic/Aerobic Culture, Resulted Pending 05/25/18 Anaerobic Culture Result 1 (LEO), Resulted Pending 05/25/18 Aerobic Culture - Preliminary, Resulted 05/25/18 Aerobic Culture Result 1 (LEO) - Preliminary, Resulted 05/25/18 Gram Stain - Final, Resulted 05/25/18 Gram Stain Result 1 (LEO) - Final, Resulted 05/25/18 Gram Stain Result 2 (LEO) - Final, Resulted Medications Current Medications Sodium Chloride (Normal Saline Flush) 3 ml PRN DAILY PRN IV AFTER MEDS AND BLOOD DRAWS; Start 05/24/18 at 14:45; Stop 05/26/18 at 10:10; Status DC Ondansetron HCl (Zofran) 4 mg PRN Q4HRS PRN IV NAUSEA/VOMITING; Start at 14:45; Stop 05/25/18 at 18:02; Status DC Sodium Chloride 1,000 ml @ 100 mls/hr Q10H IV Last administered on 05/26/18at 06:15; Start 05/24/18 at 16:00; Stop 05/26/18 at 08:41; Status DC Fentanyl Citrate (Fentanyl 2ml Vial) 50 mcg PRN Q3HRS PRN IV SEVERE PAIN Last administered on 05/26/18at 21:04; Start 05/24/18 at 14:45 Piperacillin Sod/ Tazobactam Sod 3.375 gm/Sodium Chloride 50 ml @ 100 mls/hr Q6HRS IV Last administered on 05/29/18at 05:41; Start 05/24/18 at 18:00 Ondansetron HCl (Zofran) 4 mg PRN Q6HRS PRN IV NAUSEA/VOMITING; Start at 15:15; Stop 05/25/18 at 18:02; Status DC Fentanyl Citrate (Fentanyl 2ml Vial) 25 mcg PRN Q5MIN PRN IV MILD PAIN; Start 05/25/18 at 15:15; Stop 05/26/18 at 08:43; Status DC Fentanyl Citrate (Fentanyl 2ml Vial) 50 mcg PRN Q5MIN PRN IV MODERATE TO SEVERE PAIN Last administered on 05/25/18at 18:21; Start 05/25/18 at 15:15; Stop 05/26/18 at 08:43; Status DC Ringer's Solution 1,000 ml @ 30 mls/hr Q24H IV Last administered on at 16:10; Start 05/25/18 at 15:08; Stop 05/26/18 at 03:07; Status DC Lidocaine HCl (Xylocaine-Mpf 1% 2ml Vial) 2 ml PRN 1X PRN ID PRIOR TO IV START ; Start 05/25/18 at 15:15; Stop 05/26/18 at 08:43; Status DC Prochlorperazine Edisylate (Compazine) 5 mg PACU PRN PRN IV NAUSEA, MRX1; Start 05/25/18 at 15:15; Stop 05/26/18 at 08:43; Status DC Dexamethasone Sodium Phosphate (Decadron) 20 mg STK-MED ONCE .ROUTE ; Start at 15:29; Stop 05/25/18 at 15:30; Status DC Ondansetron HCl (Zofran) 4 mg STK-MED ONCE .ROUTE ; Start 05/25/18 at 15:29; Stop 05/25/18 at 15:31; Status DC Propofol 20 ml @ As Directed STK-MED ONCE IV ; Start 05/25/18 at 15:29; Stop 05/25/18 at 15:31; Status DC Lidocaine HCl (Lidocaine Pf 2% Vial) 5 ml STK-MED ONCE .ROUTE ; Start 05/25/18 at 15:29; Stop 05/25/18 at 15:31; Status DC Ketorolac Tromethamine (Toradol For Or Only) 30 mg STK-MED ONCE INJ ; Start at 15:29; Stop 05/25/18 at 15:31; Status DC Fentanyl Citrate (Fentanyl 2ml Vial) 100 mcg STK-MED ONCE .ROUTE ; Start at 15:29; Stop 05/25/18 at 15:31; Status DC Rocuronium [place] (Zemuron) 50 mg STK-MED ONCE .ROUTE ; Start 05/25/18 at 15: 29; Stop 05/25/18 at 15:31; Status DC Midazolam HCl (Versed) 2 mg STK-MED ONCE .ROUTE ; Start 05/25/18 at 15:46; Stop 05/25/18 at 15:48; Status DC Bupivacaine HCl/ Epinephrine Bitart (Sensorcain-Mpf Epi 0.5%-1:[id number]) 30 ml STK -MED ONCE .ROUTE Last administered on 05/25/18at 16:50; Start 05/25/18 at 16: 03; Stop 05/25/18 at 16:04; Status DC Famotidine (Pepcid Vial) 20 mg STK-MED ONCE .ROUTE ; Start 05/25/18 at 16:37; Stop 05/25/18 at 16:39; Status DC Glycopyrrolate (Robinul) 1 mg STK-MED ONCE .ROUTE ; Start 05/25/18 at 17:14; Stop 05/25/18 at 17:15; Status DC Neostigmine Methylsulfate (Neostigmine Methylsulfate) 5 mg STK-MED ONCE .ROUTE ; Start 05/25/18 at 17:14; Stop 05/25/18 at 17:15; Status DC Sevoflurane (Ultane) 30 ml STK-MED ONCE IH ; Start 05/25/18 at 17:15; Stop at 17:16; Status DC Enoxaparin Sodium (Lovenox 40mg Syringe) 40 mg Q24H SQ Last administered on at 09:42; Start 05/26/18 at 09:00 Sodium Chloride (Normal Saline Flush) 3 ml QSHIFT PRN IV AFTER MEDS AND BLOOD DRAWS; Start 05/25/18 at 18:00 Ringer's Solution 1,000 ml @ 100 mls/hr Q10H IV ; Start 05/25/18 at 17:58; Stop 05/26/18 at 08:41; Status DC Acetaminophen/ Hydrocodone Bitart (Lortab 5/325) 1 tab PRN Q4HRS PRN PO MILD PAIN Last administered on 05/27/18 18:02; Start 05/25/18 at 18:00; Stop at 19:14; Status DC Ketorolac Tromethamine (Toradol 15mg Vial) 15 mg PRN Q6HRS PRN IV MILD PAIN Last administered on 05/29/18 07:21; Start 05/25/18 at 18:00; Stop 05/30/18 at 17:59 Hydromorphone HCl (Dilaudid) 0.2 mg PRN Q1HR PRN IV MODERATE PAIN Last administered on 05/26/18 03:50; Start 05/25/18 at 18:00 Docusate Sodium (Colace) 100 mg BID PO Last administered on 05/28/18 21:31; Start 05/25/18 at 21:00 Ondansetron HCl (Zofran) 4 mg PRN Q6HRS PRN IV NAUESA, 1ST CHOICE Last administered on 05/28/18 21:31; Start 05/25/18 at 18:00 Potassium Chloride/Dextrose/ Sod Cl 1,000 ml @ 75 mls/hr [id number] IV Last administered on 05/29/18 04:03; Start 05/26/18 at 09:00 Metronidazole 100 ml @ 100 mls/hr Q12HR IV Last administered on 05/28/18 08:51 ; Start 05/26/18 at 09:00; Stop 05/28/18 at 11:40; Status DC Doxycycline Hyclate 100 mg/ Dextrose 100 ml @ 50 mls/hr Q12HR IV Last administered on 05/28/18 21:30; Start 05/26/18 at 10:30 Diphenhydramine HCl (Benadryl) 25 mg PRN Q6HRS PRN IVP ITCHING Last administered on 05/26/18at 10:53; Start 05/26/18 at 10:45 Lactobacillus Rhamnosus (Culturelle) 1 cap BID PO Last administered on 21:31; Start 05/26/18 at 21:00 Acetaminophen/ Hydrocodone Bitart (Lortab 7.5/325) 1 tab PRN Q4HRS PRN PO MODERATE PAIN; Start 05/27/18 at 19:15 Acetaminophen/ Hydrocodone Bitart (Lortab 7.5/325) 2 tab PRN Q4HRS PRN PO SEVERE PAIN Last administered on 05/28/18at 18:24; Start 05/27/18 at 19:15 Vitals/I & O Vital Sign - Last 24 Hours 05/28/18 05/28/18 05/28/18 05/28/18 08:43 11:00 13:53 15:00 Temp 98.6 98.7 98.6 98.7 Pulse 41 50 Resp 18 18 B/P (MAP) 102/57 (72) 115/50 (71) Pulse Ox 96 99 97 O2 Delivery Room Air Room Air Room Air Room Air 05/28/18 05/28/18 05/28/18 05/28/18 18:24 19:00 19:24 20:00 Temp 98.4 98.4 Pulse 50 Resp 18 B/P (MAP) 110/62 (78) Pulse Ox 98 O2 Delivery Room Air Room Air Room Air Room Air 05/28/18 05/29/18 05/29/18 23:00 03:00 07:00 Temp 98.2 97.3 98.8 98.2 97.3 98.8 Pulse 54 55 70 Resp 18 18 18 B/P (MAP) 109/37 (61) 118/61 (80) 130/67 (88) Pulse Ox 97 97 96 O2 Delivery Room Air Room Air Room Air Intake and Output 05/28/18 05/28/18 05/29/18 15:01 23:01 07:01 Intake Total 120 ml 120 ml 150 ml Balance 120 ml 120 ml 150 ml BRYAN CLARK MD May 29, 2018 08:39
[2018-05-29] MEDS: ENOXAPARIN 40 MG/0.4 ML SYRINGE. SQ SCH (09:00)
[2018-05-29] MEDS: DOCUSATE SODIUM 100 MG CAPSULE. PO SCH ×2 (09:33→21:12)
[2018-05-29] MEDS: LACTOBACILLUS RHAMNOSUS GG 1 CAPSULE. PO SCH ×2 (09:33→21:12)
--- NOTE | 2018-05-29 09:47 | PDOC ---
Infectious Disease Note Subjective: Subjective Better today. ate some. Has ambulated + flatus and small BM GI soft diet, not very hungry Denies F/C/N/V/D/SOA still has pain in the abdomen at level 8 Fiance visiting ROS: ROS Negative except for above. Vital Signs: Vital Signs Vital Signs Date Time Temp Pulse Resp B/P (MAP) Pulse Ox O2 Delivery O2 Flow Rate FiO2 05/29/18 07:00 98.8 70 18 130/67 (88) 96 Room Air 98.8 Physical Exam: PHYSICAL EXAM GENERAL: NAD, looks better HENT: Oral cavity clear NECK: Supple LUNGS: Clear CV: S1 S2 ABDOMEN: Less Distended, soft, tender, + BS. Small dressing dry EXT: No gross edema SKIN: warm without rash BAKERY WORKER: Alert, oriented PIV ok Medications: Inpatient Meds: Current Medications Medications (Trade) Dose Ordered Sig/Maurice Start Time Stop Time Status Last Admin Dose Admin Acetaminophen/ Hydrocodone Bitart (Lortab 5/325) 1 tab PRN Q4HRS PRN 05/25/18 18:00 05/27/18 19:14 DC 05/27/18 18:02 1 TAB Acetaminophen/ Hydrocodone Bitart (Lortab 7.5/325) 2 tab PRN Q4HRS PRN 05/27/18 19:15 05/28/18 18:24 2 TAB Bupivacaine HCl/ Epinephrine Bitart (Sensorcain-Mpf Epi 0.5%-1:916160) 30 ml STK-MED ONCE 05/25/18 16:03 05/25/18 16:04 DC 05/25/18 16:50 10 ML Dexamethasone Sodium Phosphate (Decadron) 20 mg STK-MED ONCE 05/25/18 15:29 05/25/18 15:30 DC Diphenhydramine HCl (Benadryl) 25 mg PRN Q6HRS PRN 05/26/18 10:45 05/26/18 10:53 25 MG Docusate Sodium (Colace) 100 mg BID 05/25/18 21:00 05/29/18 09:33 100 MG Doxycycline Hyclate 100 mg/ Dextrose 100 ml @ 50 mls/hr Q12HR 05/26/18 10:30 05/28/18 21:30 50 MLS/HR Enoxaparin Sodium (Lovenox 40mg Syringe) 40 mg Q24H 05/26/18 09:00 05/26/18 09:42 40 MG Famotidine (Pepcid Vial) 20 mg STK-MED ONCE 05/25/18 16:37 05/25/18 16:39 DC Fentanyl Citrate (Fentanyl 2ml Vial) 100 mcg STK-MED ONCE 05/25/18 15:29 05/25/18 15:31 DC Glycopyrrolate (Robinul) 1 mg STK-MED ONCE 05/25/18 17:14 05/25/18 17:15 DC Hydromorphone HCl (Dilaudid) 0.2 mg PRN Q1HR PRN 05/25/18 18:00 05/26/18 03:50 0.2 MG Ketorolac Tromethamine (Toradol 15mg Vial) 15 mg PRN Q6HRS PRN 05/25/18 18:00 05/30/18 17:59 05/29/18 07:21 15 MG Ketorolac Tromethamine (Toradol For Or Only) 30 mg STK-MED ONCE 05/25/18 15:29 05/25/18 15:31 DC Lactobacillus Rhamnosus (Culturelle) 1 cap BID 05/26/18 21:00 05/29/18 09:33 1 CAP Lidocaine HCl (Lidocaine Pf 2% Vial) 5 ml STK-MED ONCE 05/25/18 15:29 05/25/18 15:31 DC Lidocaine HCl (Xylocaine-Mpf 1% 2ml Vial) 2 ml PRN 1X PRN 05/25/18 15:15 05/26/18 08:43 DC Metronidazole 100 ml @ 100 mls/hr Q12HR 05/26/18 09:00 05/28/18 11:40 DC 05/28/18 08:51 100 MLS/HR Midazolam HCl (Versed) 2 mg STK-MED ONCE 05/25/18 15:46 05/25/18 15:48 DC Neostigmine Methylsulfate (Neostigmine Methylsulfate) 5 mg STK-MED ONCE 05/25/18 17:14 05/25/18 17:15 DC Ondansetron HCl (Zofran) 4 mg PRN Q6HRS PRN 05/25/18 18:00 1/1/19 21:31 4 MG Piperacillin Sod/ Tazobactam Sod 3.375 gm/Sodium Chloride 50 ml @ 100 mls/hr Q6HRS 05/24/18 18:00 05/29/18 05:41 100 MLS/HR Potassium Chloride/Dextrose/ Sod Cl 1,000 ml @ 75 mls/hr [id number] 05/26/18 09:00 05/29/18 04:03 75 MLS/HR Prochlorperazine Edisylate (Compazine) 5 mg PACU PRN PRN 05/25/18 15:15 05/26/18 08:43 DC Propofol 20 ml @ As Directed STK-MED ONCE 05/25/18 15:29 05/25/18 15:31 DC Ringer's Solution 1,000 ml @ 100 mls/hr Q10H 05/25/18 17:58 05/26/18 08:41 DC Rocuronium [place] (Zemuron) 50 mg STK-MED ONCE 05/25/18 15:29 05/25/18 15:31 DC Sevoflurane (Ultane) 30 ml STK-MED ONCE 05/25/18 17:15 05/25/18 17:16 DC Sodium Chloride (Normal Saline Flush) 3 ml QSHIFT PRN 05/25/18 18:00 Labs: Lab Laboratory Tests Test 05/28/18 13:35 White Blood Count 11.2 x10^3/uL (4.0-11.0) Red Blood Count 4.32 x10^6/uL (3.50-5.40) Hemoglobin 12.8 g/dL (12.0-15.5) Hematocrit 38.0 % (36.0-47.0) Mean Corpuscular Volume 88 fL (79-100) Mean Corpuscular Hemoglobin 30 pg (25-35) Mean Corpuscular Hemoglobin Concent 34 g/dL (31-37) Red Cell Distribution Width 14.1 % (11.5-14.5) Platelet Count 325 x10^3/uL (140-400) Neutrophils (%) (Auto) 67 % (31-73) Lymphocytes (%) (Auto) 20 % (24-48) Monocytes (%) (Auto) 8 % (0-9) Eosinophils (%) (Auto) 4 % (0-3) Basophils (%) (Auto) 1 % (0-3) Neutrophils # (Auto) 7.6 x10^3uL (1.8-7.7) Lymphocytes # (Auto) 2.2 x10^3/uL (1.0-4.8) Monocytes # (Auto) 0.9 x10^3/uL (0.0-1.1) Eosinophils # (Auto) 0.5 x10^3/uL (0.0-0.7) Basophils # (Auto) 0.1 x10^3/uL (0.0-0.2) Segmented Neutrophils % 57 % (35-66) Band Neutrophils % 5 % (0-9) Lymphocytes % 25 % (24-48) Atypical Lymphocytes % (Manual) 1 % (0-0) Monocytes % 5 % (0-10) Eosinophils % 4 % (0-5) Metamyelocytes % 2 % (0-0) Myelocytes % 1 % (0-0) Nucleated Red Blood Cells 1 Platelet Estimate Adequate (ADEQUATE) Sodium Level 140 mmol/L (136-145) Potassium Level 4.0 mmol/L (3.5-5.1) Chloride Level 103 mmol/L (98-107) Carbon Dioxide Level 29 mmol/L (21-32) Anion Gap 8 (6-14) Blood Urea Nitrogen 8 mg/dL (7-20) Creatinine 0.8 mg/dL (0.6-1.0) Estimated GFR (Cockcroft-Gault) 104.9 Glucose Level 87 mg/dL (70-99) Calcium Level 8.7 mg/dL (8.5-10.1) Objective: Assessment: Acute onset abdominal pain s/p lap appendectomy, exploration, 05/25; Surgical findings Diffuse inflammatory change involving the deep pelvis, no obvious abscess, secondarily inflamed appendix found Infertility Leukocytosis, multifactorial (infection, surgery, pre-op steroids) Sulfa allergy - hives and itching Recent UTI diagnosed at [facility]. Rx cipro h/x unprotected sex and chlamydia , Nephrotic syndrome Chlam/GC PCR UR pending. Syphilis - neg HIV ab screen nonreactive Plan: Plan of Care Dc Zosyn start ceftriaxone cont doxy f/u Chlamydia and gonor probiotics Monitor labs/temp/pain level Pain management per primary Hopefully dc home tomorrow D/W RN D/W fiance at bedside BRITTANIE ZULETA MD May 29, 2018 09:47
[2018-05-29] MEDS: DOXYCYCLINE HYCLATE 100 MG in IV DEXTROSE 5% 100ML 100 ML IV SCH ×2 (10:37→21:13)
[2018-05-29] MEDS: HYDROcodone/APAP 7.5/325MG 1 TAB TABLET PO PRN ×3 (10:44→21:13)
[2018-05-29 11:00] VITALS: BP 118/52
[2018-05-29] MEDS ORDERED: cefTRIAXone IV Push 1 GM VIAL. IVP SCH (11:00)
--- NOTE | 2018-05-29 11:06 | PN ---
DATE: 05/29/2018 SUBJECTIVE: The patient is resting, slightly propped up in bed with BiPAP mask on. Awake, alert. On questioning her, she continued to complain of abdominal pain. Nursing staff stated that she has been up and about walking, did multiple laps around this area. OBJECTIVE: GENERAL: On examining her, she looked well and was clearly in no apparent respiratory distress. No pallor, jaundice, cyanosis, or thyromegaly. No jugular venous distension. No lower limb edema. VITAL SIGNS: Her heart rate was 70, blood pressure was 130/67, temperature was 98.8, respiratory rate 18, and oxygen saturation was 96%. HEAD, EYES, EARS, NOSE AND THROAT: Normocephalic, atraumatic. NECK: Supple. HEART: Normal first and second sounds. No gallop, rub or murmur. CHEST: Clear to auscultation. No crepitation or rhonchi. ABDOMEN: Distended, soft with tenderness mostly in the right lower quadrant. There is no guarding or rigidity. No organomegaly. Hernial orifice intact. Bowel sounds normal. NEUROLOGIC: She is awake, alert, responding appropriately. All her cranial nerves intact. She moves extremities without difficulty. She ambulates without assistance or assistive devices. Her intake and output were incompletely recorded. LABORATORY DATA: As of yesterday, her white cell count was 11,200, hemoglobin 12.8, hematocrit 38, MCV 88 and platelet count 325,000. Chemistry showed a serum sodium 140, potassium 4, chloride 103, bicarbonate 29, anion gap of 8, BUN 8, creatinine 0.3, estimated GFR was 105, glucose was 87, calcium was 8.7. ASSESSMENT: 1. Diffuse inflammatory changes consistent with pelvic inflammatory disease with no obvious abscess and secondarily inflamed appendix, status post laparoscopic appendectomy and exploration. 2. The patient has multiple other medical problems including: A. Bronchial asthma. B. Obstructive sleep apnea. C. Nephrotic syndrome in remission. D. Hypokalemia has resolved. PLAN: The plan is to continue with IV Zosyn and oral doxycycline. Await Infectious Disease evaluation. I will obviously discharge her if it was felt that the patient can safely be discharged. Continue to treat as outpatient. Her troponin was elevated. Antibody is nonreactive. HIV 1 and 2 antibody screen were negative. LAUREN MAYA MD DR: Farooq JOB#: [id number] / [id number]
[2018-05-29 15:00] VITALS: BP 102/53
--- NOTE | 2018-05-29 15:58 | NUR ---
SW following for discharge planning. Chart reviewed, discussed with RN. RN advised no SW needs at this time. SW will continue to follow.
--- NOTE | 2018-05-29 18:07 | PATHOLOGY ---
[facility] Accession Number: [id number] . 01 Material submitted: . PART A: ABDOMINAL ABSCESS PART B: APPENDIX . 01 Clinical history: . SBO, PID . 02 Diagnosis: A. Tissue designated, "abdominal abscess": - Fibrinous and acute inflammatory exudate consistent with abscess. . B. Appendix, laparoscopic appendectomy: - Serosal hemorrhage and acute and chronic inflammation. - Lymphoid hyperplasia of appendiceal mucosa. . (JPM:mm; 05/29/2018) [facility]/05/29/2018 . 02 Comment: Sections of the appendix reveal an inflammatory process primarily involving the appendiceal serosa and is suggestive of an inflammatory process arising outside of the appendix. The appendiceal mucosa largely appears intact and shows focal lymphoid hyperplasia. . (JPM:mml; 05/29/2018) . 02 Electronically signed: . Gil Bearden MD, Pathologist NPI- [id number] . 01 Gross description: . A. The specimen is received in formalin, labeled "Raymond Aicha, abdominal abscess", is an irregular segment of cruz-white, friable, necrotic soft tissue measuring 3.0 x 1.7 x 0.2 cm. Kiln Setter tissue is submitted in A1. . B. The specimen is received in formalin, labeled "Raymond, Aicha, appendix", is a diffusely hemorrhagic appendix measuring 6.5 cm in length with an average 0.5 cm diameter with attached yellow lobulated meso-appendix measuring 3.7 x 1.0 x 0.6 cm. The serosa is diffusely covered by hemorrhagic foci. The proximal resection margin is closed by a linear staple line measuring 2.7 cm in length with an average 0.2 cm width. The staple line is removed and the adjacent serosa is inked black. The proximal lumen is filled with dark brown hemorrhagic material and no discrete fecalith. The appendiceal wall has an average 0.2 cm thickness. No discrete perforation or masses are identified. Kiln Setter tissue is submitted in B1. (SWS; 05/27/2018) SHS/SHS . 02 Pathologist provided ICD-10: K65.1, K35.80, K36 . 02 CPT . 796763, [id number] Specimen Comment: A courtesy copy of this report has been sent to Specimen Comment: [phone], , . Specimen Comment: Report sent to ,DR MAYA / DR AMAYA Performed at: 01 [facility] [address], [place] [id number] MD Kalen Hernandez MD Phone: [phone] Performed at: 02 [facility] [address] [place], [place] [id number] MD Gil Bearden MD Phone: [phone]
[2018-05-29 19:00] VITALS: BP 121/51
[2018-05-29 23:00] VITALS: BP 117/58
[2018-05-30 03:00] VITALS: BP 111/45
[2018-05-30] MEDS: HYDROcodone/APAP 7.5/325MG 1 TAB TABLET PO PRN (05:45)
[2018-05-30] MEDS: POTASSIUM CL 40MEQ D5-0.45NACL 1,000 ML IV SCH (05:50)
[2018-05-30 07:00] VITALS: BP 107/38
--- NOTE | 2018-05-30 07:21 | PDOC ---
Infectious Disease Note Subjective: Subjective pt without complaints Denies F/C/N/V/D/SOA eager for dc home today ROS: ROS Negative except for above. Vital Signs: Vital Signs Vital Signs Date Time Temp Pulse Resp B/P (MAP) Pulse Ox O2 Delivery O2 Flow Rate FiO2 05/30/18 05:45 Room Air 05/30/18 03:00 98.9 60 18 111/45 (67) 96 98.9 Physical Exam: PHYSICAL EXAM GENERAL: NAD, looks better HENT: Oral cavity clear NECK: Supple LUNGS: Clear CV: S1 S2 ABDOMEN: Less Distended, soft, tender, + BS. Small dressing dry EXT: No gross edema SKIN: warm without rash WORK MEASUREMENT ENGINEER: Alert, oriented PIV ok Medications: Inpatient Meds: Current Medications Medications (Trade) Dose Ordered Sig/Maurice Start Time Stop Time Status Last Admin Dose Admin Acetaminophen/ Hydrocodone Bitart (Lortab 5/325) 1 tab PRN Q4HRS PRN 05/25/18 18:00 05/27/18 19:14 DC 05/27/18 18:02 1 TAB Acetaminophen/ Hydrocodone Bitart (Lortab 7.5/325) 2 tab PRN Q4HRS PRN 05/27/18 19:15 05/30/18 05:45 2 TAB Bupivacaine HCl/ Epinephrine Bitart (Sensorcain-Mpf Epi 0.5%-1:167324) 30 ml STK-MED ONCE 05/25/18 16:03 05/25/18 16:04 DC 05/25/18 16:50 10 ML Ceftriaxone Sodium (Rocephin) 1 gm Q24H 05/29/18 11:00 05/29/18 13:14 1 GM Dexamethasone Sodium Phosphate (Decadron) 20 mg STK-MED ONCE 05/25/18 15:29 05/25/18 15:30 DC Diphenhydramine HCl (Benadryl) 25 mg PRN Q6HRS PRN 05/26/18 10:45 05/26/18 10:53 25 MG Docusate Sodium (Colace) 100 mg BID 05/25/18 21:00 05/29/18 21:12 100 MG Doxycycline Hyclate 100 mg/ Dextrose 100 ml @ 50 mls/hr Q12HR 05/26/18 10:30 05/29/18 21:13 50 MLS/HR Enoxaparin Sodium (Lovenox 40mg Syringe) 40 mg Q24H 05/26/18 09:00 05/26/18 09:42 40 MG Famotidine (Pepcid Vial) 20 mg STK-MED ONCE 05/25/18 16:37 05/25/18 16:39 DC Fentanyl Citrate (Fentanyl 2ml Vial) 100 mcg STK-MED ONCE 05/25/18 15:29 05/25/18 15:31 DC Glycopyrrolate (Robinul) 1 mg STK-MED ONCE 05/25/18 17:14 05/25/18 17:15 DC Hydromorphone HCl (Dilaudid) 0.2 mg PRN Q1HR PRN 05/25/18 18:00 05/26/18 03:50 0.2 MG Ketorolac Tromethamine (Toradol 15mg Vial) 15 mg PRN Q6HRS PRN 05/25/18 18:00 05/30/18 17:59 05/29/18 07:21 15 MG Ketorolac Tromethamine (Toradol For Or Only) 30 mg STK-MED ONCE 05/25/18 15:29 05/25/18 15:31 DC Lactobacillus Rhamnosus (Culturelle) 1 cap BID 05/26/18 21:00 05/29/18 21:12 1 CAP Lidocaine HCl (Lidocaine Pf 2% Vial) 5 ml STK-MED ONCE 05/25/18 15:29 05/25/18 15:31 DC Lidocaine HCl (Xylocaine-Mpf 1% 2ml Vial) 2 ml PRN 1X PRN 05/25/18 15:15 05/26/18 08:43 DC Metronidazole 100 ml @ 100 mls/hr Q12HR 05/26/18 09:00 05/28/18 11:40 DC 05/28/18 08:51 100 MLS/HR Midazolam HCl (Versed) 2 mg STK-MED ONCE 05/25/18 15:46 05/25/18 15:48 DC Neostigmine Methylsulfate (Neostigmine Methylsulfate) 5 mg STK-MED ONCE 05/25/18 17:14 05/25/18 17:15 DC Ondansetron HCl (Zofran) 4 mg PRN Q6HRS PRN 05/25/18 18:00 1/1/19 21:31 4 MG Piperacillin Sod/ Tazobactam Sod 3.375 gm/Sodium Chloride 50 ml @ 100 mls/hr Q6HRS 05/24/18 18:00 05/29/18 10:01 DC 05/29/18 05:41 100 MLS/HR Potassium Chloride/Dextrose/ Sod Cl 1,000 ml @ 75 mls/hr [id number] 05/26/18 09:00 05/30/18 05:50 75 MLS/HR Prochlorperazine Edisylate (Compazine) 5 mg PACU PRN PRN 05/25/18 15:15 05/26/18 08:43 DC Propofol 20 ml @ As Directed STK-MED ONCE 05/25/18 15:29 05/25/18 15:31 DC Ringer's Solution 1,000 ml @ 100 mls/hr Q10H 05/25/18 17:58 05/26/18 08:41 DC Rocuronium [place] (Zemuron) 50 mg STK-MED ONCE 05/25/18 15:29 05/25/18 15:31 DC Sevoflurane (Ultane) 30 ml STK-MED ONCE 05/25/18 17:15 05/25/18 17:16 DC Sodium Chloride (Normal Saline Flush) 3 ml QSHIFT PRN 05/25/18 18:00 Objective: Assessment: Acute onset abdominal pain s/p lap appendectomy, exploration, 05/25; Surgical findings Diffuse inflammatory change involving the deep pelvis, no obvious abscess, secondarily inflamed appendix found Infertility Leukocytosis, multifactorial (infection, surgery, pre-op steroids) Sulfa allergy - hives and itching Recent UTI diagnosed at [facility]. Rx cipro h/x unprotected sex and chlamydia , Nephrotic syndrome Chlam/GC PCR UR pending. Syphilis - neg HIV ab screen nonreactive Plan: Plan of Care dc home on doxycycline and augmentin from id standpoint s/e of abx discussed d/w rn D/W phyllis at bedside BRITTANIE ZULETA MD May 30, 2018 07:21
[2018-05-30] MEDS: DOCUSATE SODIUM 100 MG CAPSULE. PO SCH (08:38)
[2018-05-30] MEDS: LACTOBACILLUS RHAMNOSUS GG 1 CAPSULE. PO SCH (08:38)
[2018-05-30] MEDS: ENOXAPARIN 40 MG/0.4 ML SYRINGE. SQ SCH (09:00)
--- NOTE | 2018-05-30 09:17 | PDOC ---
SURGICAL PROGRESS NOTE Subjective pain is improved tolerating diet ready for discharge today Vital Signs Vital Signs Date Time Temp Pulse Resp B/P (MAP) Pulse Ox O2 Delivery O2 Flow Rate FiO2 05/30/18 08:00 Room Air 05/30/18 07:00 55 18 107/38 (61) 100 05/30/18 03:00 98.9 98.9 I&O Intake and Output 05/30/18 07:01 Intake Total 950 ml Balance 950 ml Intake Oral 950 ml # Voids 1 General: Alert, Oriented X3, Cooperative, No acute distress Abdomen: Soft, Other (lap dressings dry ) Labs Laboratory Tests Test 05/28/18 13:35 White Blood Count 11.2 x10^3/uL (4.0-11.0) Red Blood Count 4.32 x10^6/uL (3.50-5.40) Hemoglobin 12.8 g/dL (12.0-15.5) Hematocrit 38.0 % (36.0-47.0) Mean Corpuscular Volume 88 fL (79-100) Mean Corpuscular Hemoglobin 30 pg (25-35) Mean Corpuscular Hemoglobin Concent 34 g/dL (31-37) Red Cell Distribution Width 14.1 % (11.5-14.5) Platelet Count 325 x10^3/uL (140-400) Neutrophils (%) (Auto) 67 % (31-73) Lymphocytes (%) (Auto) 20 % (24-48) Monocytes (%) (Auto) 8 % (0-9) Eosinophils (%) (Auto) 4 % (0-3) Basophils (%) (Auto) 1 % (0-3) Neutrophils # (Auto) 7.6 x10^3uL (1.8-7.7) Lymphocytes # (Auto) 2.2 x10^3/uL (1.0-4.8) Monocytes # (Auto) 0.9 x10^3/uL (0.0-1.1) Eosinophils # (Auto) 0.5 x10^3/uL (0.0-0.7) Basophils # (Auto) 0.1 x10^3/uL (0.0-0.2) Segmented Neutrophils % 57 % (35-66) Band Neutrophils % 5 % (0-9) Lymphocytes % 25 % (24-48) Atypical Lymphocytes % (Manual) 1 % (0-0) Monocytes % 5 % (0-10) Eosinophils % 4 % (0-5) Metamyelocytes % 2 % (0-0) Myelocytes % 1 % (0-0) Nucleated Red Blood Cells 1 Platelet Estimate Adequate (ADEQUATE) Sodium Level 140 mmol/L (136-145) Potassium Level 4.0 mmol/L (3.5-5.1) Chloride Level 103 mmol/L (98-107) Carbon Dioxide Level 29 mmol/L (21-32) Anion Gap 8 (6-14) Blood Urea Nitrogen 8 mg/dL (7-20) Creatinine 0.8 mg/dL (0.6-1.0) Estimated GFR (Cockcroft-Gault) 104.9 Glucose Level 87 mg/dL (70-99) Calcium Level 8.7 mg/dL (8.5-10.1) Assessment/Plan s/p appy, PID ok to dc FU 2 weeks ANDERSON OMALLEY APRN May 30, 2018 09:17
[2018-05-30] MEDS ORDERED: DOXY100C2 PO (09:20)
[2018-05-30] MEDS ORDERED: AMOX1TAB61 PO (09:20)
[2018-05-30] MEDS ORDERED: HYDR-2765 PO (09:20)
--- NOTE | 2018-05-30 09:52 | NUR ---
Discharge instructions reviewed with patient. Patient verbalized understanding. Patient was escorted down via wheelchair by Wayne MAC and accompanied by her phyllis Callejas.
--- NOTE | 2018-05-30 09:55 | DS ---
DATE OF DISCHARGE: 05/30/2018 HOSPITAL COURSE: The patient is a 27-year-old -[place] female patient who was seen originally at [facility] with a complaint of abdominal pain. Initially, she was diagnosed with severe constipation and was given laxatives, although she did have some bowel movements. She continued to have severe abdominal pain and she came back to [facility] Emergency Room, where a CT scan of the abdomen was done and it showed that she has possible appendicitis versus bowel obstruction and she was transferred to [facility], where she was seen by Dr. Paredes. The patient was taken to ER and was found to have diffuse inflammatory changes involving the deep pelvis, with no obvious abscess and secondarily inflamed appendix. She was seen in consultation by the tip finisher. We treated her initially with Zosyn. She was seen by the tip finisher, who added Flagyl and doxycycline. The Infectious Disease specialist has seen her also and finally she was switched to oral. Her pain has improved. She has been up and about. She is eating and drinking and has bowel movement. Decision was made to discharge her home to continue on oral antibiotic in the form of doxycycline as well as Augmentin. PHYSICAL EXAMINATION: GENERAL: When I saw her today, she looked well and was clearly in no apparent respiratory distress. VITAL SIGNS: Her heart rate was 55, blood pressure was 107/38, temperature was 98.9, respiratory rate was 16 and oxygen saturation was 100% on room air. HEENT: Examination of the head, eyes, ears, nose and throat showed normocephalic, atraumatic. NECK: Supple. HEART: Showed normal first and second heart sounds. No gallop, rub or murmur. CHEST: Clear to auscultation. No crepitation or rhonchi. ABDOMEN: Distended, soft. Some mild tenderness in the right lower quadrant. No guarding or rigidity. No organomegaly. All hernial orifices intact. Bowel sounds normal. NEUROLOGIC: She was awake, alert and responding appropriately. All cranial nerves intact. She moved extremities without difficulty. She ambulated without assistance or assistive devices. LABORATORY DATA: Her lab work showed a white cell count of 11,200, hemoglobin 12.8, hematocrit 38, MCV 88 and platelet count 325,000. Her chemistry showed a serum sodium 140, potassium 4, chloride 103, bicarbonate 29, anion gap of 8, BUN 8, creatinine 0.8, estimated GFR was 105 mL per minute, her glucose was 87 and calcium was 8.7. Her Treponema pallidum antibodies were negative. Urine Chlamydia DNA by PCR was negative. Her HIV 1 and 2 antibody screen was nonreactive and gonorrhea DNA by PCR was negative. DISCHARGE MEDICATIONS: She was discharged home to continue on the following medications: Augmentin 875 mg twice a day with food for 10 days and doxycycline 100 mg twice a day for 10 days. She was also given a prescription for hydrocodone/APAP 7.5/325 one to two tablets every 4 hours as needed. FINAL DISCHARGE DIAGNOSES: 1. Diffuse inflammatory changes consistent with pelvic inflammatory disease, but without any obvious abscess. 2. Secondarily inflamed appendix. 3. The patient has multiple other medical problems including minimal change disease nephrotic syndrome that is in remission. She is also known to have mild bronchial asthma and obstructive sleep apnea, for which she is on CPAP. She has also had esophageal stricture, status post esophageal dilatation. LAUREN MAYA MD DR: RUPERT/radha JOB#: [id number] / [id number]
== END 2018-05-30 09:59 | disposition home or self-care (01) | DRG 749 ==
LOC: 4 NORTH 12:45
PROVIDERS: ADMIT Internal Medicine; ATTEND Internal Medicine
PROC: 5A09357 Assistance with Respiratory Ventilation, Less than 24 Consecutive Hours, Continuous Positive Airway Pressure (ICD-10-PCS; 2018-05-25)
PROC: 0DTJ4ZZ Resection of Appendix, Percutaneous Endoscopic Approach (ICD-10-PCS; principal; 2018-05-25 16:00)
PROC: 5A09357 Assistance with Respiratory Ventilation, Less than 24 Consecutive Hours, Continuous Positive Airway Pressure (ICD-10-PCS; 2018-05-26)
DX: N73.9 Female pelvic inflammatory disease, unspecified (principal); K56.609 Unspecified intestinal obstruction, unspecified as to partial versus complete obstruction; K37 Unspecified appendicitis; E87.6 Hypokalemia; J45.909 Unspecified asthma, uncomplicated; G47.33 Obstructive sleep apnea (adult) (pediatric); G43.909 Migraine, unspecified, not intractable, without status migrainosus; K52.9 Noninfective gastroenteritis and colitis, unspecified; R13.10 Dysphagia, unspecified; N97.9 Female infertility, unspecified; Z88.5 Allergy status to narcotic agent; Z88.2 Allergy status to sulfonamides; Z88.8 Allergy status to other drugs, medicaments and biological substances; Z82.5 Family history of asthma and other chronic lower respiratory diseases; Z82.49 Family history of ischemic heart disease and other diseases of the circulatory system; Z87.441 Personal history of nephrotic syndrome
CPT/HCPCS: 36415; 80048; 80053; 81025; 85007; 85025; 86592; 86703; 87071; 87075; 87491; 87591; 88304; A7015; J0696; J1100; J1170; J1200; J1650; J1885; J2001; J2250; J2405; J2543; J2704; J2710; J3010; J3490; J7030; J7042; J7120

== ENCOUNTER → 2018-09-13 | Outpatient (CLI) | payer BC ==
[~2018-09-13] MED LIST: AMOX1TAB61 PO; DOXY100C2 PO; HYDR-2765 PO
--- NOTE | 2018-09-13 10:02 | RAD ---
MRI Brain without contrast History: Worsening migraine headaches Technique: Multiplanar, multisequential noncontrast MR imaging was performed of the brain. Comparison: None Findings: There is some motion degradation. There is no evidence of recent infarct or cytotoxic edema. The ventricles, sulci, and cisterns are within normal limits in size and configuration. There is no significant midline shift, intraaxial mass effect, or focal abnormal extra-axial fluid collection. There is no significant signal abnormality of the brain parenchyma. There is preservation of the major intracranial flow-voids at the skull base. The mastoid air cells are aerated. The cerebellar tonsils are normal in location. There is no significant abnormality of the pineal gland or pituitary gland. There is [id number] left and mild right ethmoid air cell mucosal thickening, also minimal bilateral maxillary sinus and left sphenoid sinus mucosal thickening. There is preserved marrow signal of the clivus. There is a small 0.5 cm transverse by 0.6 cm focus of signal abnormality superior to the superficial left parotid gland. Impression: 1. There is no significant intracranial abnormality. 2. There is paranasal sinus mucosal thickening as described. 3. There is a small 0.5 cm transverse by 0.6 cm lesion superficial to the superior left parotid gland is more likely a small node, otherwise difficult to characterize. Electronically signed by: Akira Cruz MD (09/13/2018 9:59 AM) [id number]
== END | disposition home or self-care (01) ==
LOC: MRI 08:44
PROVIDERS: ATTEND Psychiatry & Neurology Neurology
DX: G43.001 Migraine without aura, not intractable, with status migrainosus (principal); J34.89 Other specified disorders of nose and nasal sinuses
CPT/HCPCS: 70551

== ENCOUNTER 2021-02-24 14:49 | Observation (INO) | payer BC ==
[~2021-02-24 14:49] MED LIST changes: -DOXY100C2 PO; +DOXY100C3 PO
[2021-02-24] MEDS ORDERED: IV RINGERS,LACTATED 1000ML 1,000 ML IV PRN (15:15)
[2021-02-24 15:41] LABS: BILIRUBIN,URINE NEGATIVE (NEG); CLARITY,URINE CLEAR; COLOR,URINE YELLOW; NITRITE,URINE NEGATIVE (NEG); PH,URINE 6.5 (<5.0-8.0); PROTEIN,URINE NEGATIVE (NEG-TRACE); UROBILINOGEN,URINE 0.2 mg/dL (0.2 mg/dL)
[2021-02-24 15:58] LABS: BACTERIA,URINE MANY /HPF (0-FEW); RBC,URINE OCC /HPF (0-2)
[2021-02-24] MEDS ORDERED: NITR100C62 PO (17:29)
== END 2021-02-24 18:43 | disposition home or self-care (01) ==
LOC: 3 SO LND 14:49
PROVIDERS: ADMIT Obstetrics & Gynecology; ATTEND Obstetrics & Gynecology
DX: O99.891 Other specified diseases and conditions complicating pregnancy (principal); M54.9 Dorsalgia, unspecified; O26.893 Other specified pregnancy related conditions, third trimester; R30.9 Painful micturition, unspecified; Z3A.32 32 weeks gestation of pregnancy
CPT/HCPCS: 59025; 81001; 87086; G0378; G0379

== ENCOUNTER 2021-04-10 04:29 | Inpatient (IN) | payer BC ==
[~2021-04-10] VITALS: Ht 162.6 cm; Wt 96.3 kg
[~2021-04-10 04:29] MED LIST changes: +NITR100C62 PO
[2021-04-10 04:35] VITALS: BP 118/69
[2021-04-10] MEDS ORDERED: TERBUTALINE 1 MG/ML VIAL. SQ PRN (05:15)
[2021-04-10] MEDS ORDERED: 0.9 % SODIUM CHLORIDE 10 ML DISP.SYRIN. IV PRN ×2 (05:15→16:45)
[2021-04-10] MEDS ORDERED: OXYTOCIN 30 UNIT/500 ML PREMIX 500 ML IV PRN ×2 (05:15)
[2021-04-10] MEDS ORDERED: LIDOCAINE 1% PF 30 ML VIAL. INJ PRN (05:15)
[2021-04-10] MEDS ORDERED: IBUPROFEN 400 MG TABLET. PO PRN (05:15)
[2021-04-10] MEDS ORDERED: IV RINGERS,LACTATED 1000ML 1,000 ML IV SCH (05:15)
[2021-04-10 05:37] LABS: BILIRUBIN,URINE NEGATIVE (NEG); CLARITY,URINE CLEAR; COLOR,URINE YELLOW; NITRITE,URINE NEGATIVE (NEG); PROTEIN,URINE NEGATIVE (NEG-TRACE); UROBILINOGEN,URINE 0.2 mg/dL (0.2 mg/dL)
[2021-04-10] MEDS ORDERED: fentaNYL PF VIAL 100 MCG/2 ML VIAL IVP PRN (05:45)
[2021-04-10 06:10] LABS: BACTERIA,URINE 0 /HPF (0-FEW); RBC,URINE 0 /HPF (0-2); WBC,URINE RARE /HPF (0-4)
[2021-04-10 06:56] LABS: BASO # 0.1 x10^3/uL (0.0-0.2); BASO % 1 % (0-3); EOS # 0.1 x10^3/uL (0.0-0.7); EOS % 2 % (0-3); HEMATOCRIT 39.5 % (36.0-47.0); HEMOGLOBIN 12.9 g/dL (12.0-15.5); LYMPH # 1.6 x10^3/uL (1.0-4.8); LYMPH % 17 % (24-48); MEAN CORPUSCULAR HEMOGLOBIN 30 pg (25-35); MEAN CORPUSCULAR HGB CONC 33 g/dL (31-37); MEAN CORPUSCULAR VOLUME 91 fL (79-100); MONO # 0.6 x10^3/uL (0.0-1.1); MONO % 6 % (0-9); NEUT % 75 % (31-73); PLATELET COUNT 178 x10^3/uL (140-400); RED BLOOD COUNT 4.35 x10^6/uL (3.50-5.40); RED CELL DISTRIBUTION WIDTH 14.1 % (11.5-14.5); WHITE BLOOD COUNT 9.4 x10^3/uL (4.0-11.0)
[2021-04-10] MEDS ORDERED: IV RINGERS,LACTATED 1000ML 1,000 ML IV ONE ×2 (09:15)
[2021-04-10] MEDS ORDERED: ePHEDrine PF IN SALINE 50 MG/10 ML SYRINGE. IV PRN (09:15)
[2021-04-10] MEDS ORDERED: fentaNYL PF VIAL 100 MCG/2 ML VIAL EPID ONE ×2 (09:15)
[2021-04-10] MEDS ORDERED: NALOXONE 0.4 MG/ML VIAL. IV PRN ×2 (09:15)
[2021-04-10] MEDS ORDERED: ONDANSETRON PF 4 MG/2 ML VIAL. IV PRN ×2 (09:15)
[2021-04-10] MEDS ORDERED: L&D EPIDURAL SYRINGE 50 ML EPID PRN ×2 (09:15)
[2021-04-10] MEDS ORDERED: ROPIVacaine 0.2% PF 10 ML VIAL. ONE ×3 (09:21→14:09)
[2021-04-10] MEDS ORDERED: L&D EPIDURAL 50 ML SYRINGE. ONE (10:00)
[2021-04-10 10:16] LABS: CALCIUM 8.7 mg/dL (8.5-10.1); CREATININE 0.5 mg/dL (0.6-1.0); GFR 176.5; POTASSIUM 4.2 mmol/L (3.5-5.1)
[2021-04-10 10:21] LABS: ALBUMIN 2.7 g/dL (3.4-5.0); ALBUMIN/GLOBULIN RATIO 0.8 (1.0-1.7); TOTAL BILIRUBIN 0.3 mg/dL (0.2-1.0); TOTAL PROTEIN 6.2 g/dL (6.4-8.2); URIC ACID 4.4 mg/dL (2.6-6.0)
--- NOTE | 2021-04-10 10:26 | PDOC1 ---
[facility] ATTENDANT H&P Date of Admission: Date of Admission: Apr 10, 2021 at 04:29 History of Present Illness: 30yo G1 @ 38.3 weeks by 7wUS. Presents from home with complaints of UCs, onset 022, increasing in frequency and intensity prior to arrival. Initial SVE /- 3, Now 4+/100/-2 with BBOW. Uncomplicated . PMH s/f Nephrotic Syndrome (Remission 2014), Mild Intermittent Asthma - not currently necessitating Rx. Baseline TPCR (.06g/day) Rpt @ 32 weeks (0.1g/day). 30lb weight gain. Desires epidural for pain management. Plans to breastfeed. Pt. currently breathing well through contractions, anesthesia notified of request for labor epidural. Mother supportive at bedside. AB+, ab neg RPR NR HIV Neg RI Hep B Neg Hep C Neg Quad Neg TDaP (03/01/21) Covid vaccine x 2 (08/15). Past Medical History: Cardiovascular: No pertinent hx Pulmonary: No pertinent hx, Other CENTRAL NERVOUS SYSTEM: Migraine GI: No pertinent hx Heme/Onc: No pertinent hx Hepatobiliary: No pertinent hx Psych: No pertinent hx Musculoskeletal: low back pain Rheumatologic: No pertinent hx Infectious disease: No pertinent hx ENT: No pertinent hx Renal/: Other Endocrine: No pertinent hx Dermatology: No pertinent hx Grav: 1 Para: 0 Past Surgical History: Appendectomy, Other Social History: Smoke: No ALCOHOL: none Drugs: None Medications: Meds: Current Medications Medications (Trade) Dose Ordered Sig/Maurice Route PRN Reason Start Time Stop Time Status Last Admin Dose Admin Ringer's Solution 1,000 ml @ 125 mls/hr Q8H IV 04/10/21 05:15 04/10/21 08:49 Fentanyl Citrate (Fentanyl 2ml Vial) 100 mcg 1X PRN IVP PAIN 04/10/21 05:45 04/10/21 07:17 Allergies: Coded Allergies: Sulfa (Sulfonamide Antibiotics) (Verified Allergy, Intermediate, 05/25/18) lorazepam (Verified Allergy, Intermediate, 05/25/18) morphine (Verified Allergy, Intermediate, 05/25/18) oxycodone (Verified Allergy, Intermediate, 05/25/18) Physical Exam: PE: GENERAL: No apparent distress. Alert and oriented. HEENT: Head normocephalic, atraumatic. NECK: Supple LUNGS: Clear to auscultation. HEART: RRR, S1, S2 present, pulses intact ABDOMEN: Soft, positive bowel sounds. EXTREMITIES: No cyanosis or edema. NEUROLOGIC: Normal speech, normal tone PSYCHIATRIC: Normal affect, normal mood. SKIN: No ulceration. Labs: Laboratory Tests Test 04/10/21 04:50 04/10/21 06:05 Urine Collection Type Unknown Urine Color Yellow Urine Clarity Clear Urine pH 7.0 (<5.0-8.0) Urine Specific [place] 1.020 (1.000-1.030) Urine Protein Negative mg/dL (NEG-TRACE) Urine Glucose (UA) Negative mg/dL (NEG) Urine Ketones (Stick) Negative mg/dL (NEG) Urine Blood Negative (NEG) Urine Nitrite Negative (NEG) Urine Bilirubin Negative (NEG) Urine Urobilinogen Dipstick 0.2 mg/dL (0.2 mg/dL) Urine Leukocyte Esterase Negative (NEG) Urine RBC 0 /HPF (0-2) Urine WBC Rare /HPF (0-4) Urine Squamous Epithelial Cells Few /LPF Urine Bacteria 0 /HPF (0-FEW) White Blood Count 9.4 x10^3/uL (4.0-11.0) Red Blood Count 4.35 x10^6/uL (3.50-5.40) Hemoglobin 12.9 g/dL (12.0-15.5) Hematocrit 39.5 % (36.0-47.0) Mean Corpuscular Volume 91 fL (79-100) Mean Corpuscular Hemoglobin 30 pg (25-35) Mean Corpuscular Hemoglobin Concent 33 g/dL (31-37) Red Cell Distribution Width 14.1 % (11.5-14.5) Platelet Count 178 x10^3/uL (140-400) Neutrophils (%) (Auto) 75 % (31-73) H Lymphocytes (%) (Auto) 17 % (24-48) L Monocytes (%) (Auto) 6 % (0-9) Eosinophils (%) (Auto) 2 % (0-3) Basophils (%) (Auto) 1 % (0-3) Neutrophils # (Auto) 7.0 x10^3/uL (1.8-7.7) Lymphocytes # (Auto) 1.6 x10^3/uL (1.0-4.8) Monocytes # (Auto) 0.6 x10^3/uL (0.0-1.1) Eosinophils # (Auto) 0.1 x10^3/uL (0.0-0.7) Basophils # (Auto) 0.1 x10^3/uL (0.0-0.2) Laboratory Tests 04/10/21 06:05 Laboratory Tests 04/10/21 06:05 Assessment & Plan: Afebrile, VSS. FHR: 125, moderate variability, + accels, no decels. TOCO: q 2-4, 60 seconds, palpate moderate. Plan AROM following epidural placement. Expectant management. Anticipate . Pt. and mother v/u of all. 1. 30yoG1 @ 38.3 weeks 2. Spontaneous labor 3. Cat I FHT 4. GBS Negative 5. TDaP 03/01/21 6. Covid vaccine x 2 (08/15) 7. h/o Nephrotic Syndrome - labs pending, stable during PAWEL CHO CNM Apr 10, 2021 10:26
--- NOTE | 2021-04-10 11:18 | NUR ---
Fentanyl syringe non-administered r/t duplicate order showing on eMAR.
--- NOTE | 2021-04-10 13:45 | PDOC ---
PRINT MANAGER PROGRESS NOTE Date of Service: DATE: 04/10/21 TIME: 13:39 Objective: Objective: Resting quietly with eyes closed upon entry to room. Reports mild low back pressure with UCs, talking through contractions. SVE 8/100/-1, BBOW s pontaneously ruptured with exam - leaking small amounts of clear, non-odorous fluid. FHR: 120, moderate variability, + accels, no decels. Cat I. TOCO: q 2-4 minutes, 60 seconds, palpate moderate/strong. Vital Signs: Vital Signs Date Time Temp Pulse Resp B/P (MAP) Pulse Ox O2 Delivery O2 Flow Rate FiO2 04/10/21 04:35 97.9 77 20 118/69 (85) Room Air 97.9 Vital Signs Date Time Temp Pulse Resp B/P (MAP) Pulse Ox O2 Delivery O2 Flow Rate FiO2 04/10/21 12:40 16 Room Air 04/10/21 04:35 97.9 77 118/69 (85) 97.9 Labs: Laboratory Tests Test 04/10/21 04:50 04/10/21 06:05 04/10/21 09:58 Urine Collection Type Unknown Urine Color Yellow Urine Clarity Clear Urine pH 7.0 (<5.0-8.0) Urine Specific [place] 1.020 (1.000-1.030) Urine Protein Negative mg/dL (NEG-TRACE) Urine Glucose (UA) Negative mg/dL (NEG) Urine Ketones (Stick) Negative mg/dL (NEG) Urine Blood Negative (NEG) Urine Nitrite Negative (NEG) Urine Bilirubin Negative (NEG) Urine Urobilinogen Dipstick 0.2 mg/dL (0.2 mg/dL) Urine Leukocyte Esterase Negative (NEG) Urine RBC 0 /HPF (0-2) Urine WBC Rare /HPF (0-4) Urine Squamous Epithelial Cells Few /LPF Urine Bacteria 0 /HPF (0-FEW) White Blood Count 9.4 x10^3/uL (4.0-11.0) Red Blood Count 4.35 x10^6/uL (3.50-5.40) Hemoglobin 12.9 g/dL (12.0-15.5) Hematocrit 39.5 % (36.0-47.0) Mean Corpuscular Volume 91 fL (79-100) Mean Corpuscular Hemoglobin 30 pg (25-35) Mean Corpuscular Hemoglobin Concent 33 g/dL (31-37) Red Cell Distribution Width 14.1 % (11.5-14.5) Platelet Count 178 x10^3/uL (140-400) Neutrophils (%) (Auto) 75 % (31-73) H Lymphocytes (%) (Auto) 17 % (24-48) L Monocytes (%) (Auto) 6 % (0-9) Eosinophils (%) (Auto) 2 % (0-3) Basophils (%) (Auto) 1 % (0-3) Neutrophils # (Auto) 7.0 x10^3/uL (1.8-7.7) Lymphocytes # (Auto) 1.6 x10^3/uL (1.0-4.8) Monocytes # (Auto) 0.6 x10^3/uL (0.0-1.1) Eosinophils # (Auto) 0.1 x10^3/uL (0.0-0.7) Basophils # (Auto) 0.1 x10^3/uL (0.0-0.2) Sodium Level 138 mmol/L (136-145) Potassium Level 4.2 mmol/L (3.5-5.1) Chloride Level 103 mmol/L (98-107) Carbon Dioxide Level 20 mmol/L (21-32) L Anion Gap 15 (6-14) H Blood Urea Nitrogen 11 mg/dL (7-20) Creatinine 0.5 mg/dL (0.6-1.0) L Estimated GFR (Cockcroft-Gault) 176.5 BUN/Creatinine Ratio 22 (6-20) H Glucose Level 76 mg/dL (70-99) Uric Acid 4.4 mg/dL (2.6-6.0) Calcium Level 8.7 mg/dL (8.5-10.1) Total Bilirubin 0.3 mg/dL (0.2-1.0) Aspartate Amino Transferase (AST) 24 U/L (15-37) Alanine Aminotransferase (ALT) 28 U/L (14-59) Alkaline Phosphatase 239 U/L (46-116) H Total Protein 6.2 g/dL (6.4-8.2) L Albumin 2.7 g/dL (3.4-5.0) L Albumin/Globulin Ratio 0.8 (1.0-1.7) L Lactate Dehydrogenase 212 U/L (81-234) Laboratory Tests 04/10/21 06:05 Laboratory Tests 04/10/21 06:05 Laboratory Tests 04/10/21 06:05 Physical Exam: GENERAL: No apparent distress. Alert and oriented. HEENT: Head normocephalic, atraumatic. NECK: Supple LUNGS: Clear to auscultation. HEART: RRR, S1, S2 present, pulses intact ABDOMEN: Soft, positive bowel sounds. EXTREMITIES: No cyanosis or edema. NEUROLOGIC: Normal speech, normal tone PSYCHIATRIC: Normal affect, normal mood. SKIN: No ulceration. Assessment & Plan: Pt. repositioned to complete right lateral with peanut positioner for facilitation of rotation/descent. Cont. expectant management. Anticipate . PAWEL CHO CNM Apr 10, 2021 13:45
--- NOTE | 2021-04-10 16:44 | PDOC4 ---
VAGINAL DELIVERY DATE DATE: 04/10/21 TIME: 16:40 TIME 1607 : 1 Para: 1 EDC: Apr 20, 2021 EGA: 38.3 VAGINAL DELIVERY: VTX VACCUM ASSISTED: No PLACENTA: Spontaneous 8/9 SEX: Male WEIGHT Weight [3340gm 7lb 5.8oz ] Nuchal Cord: No Amniotic Fluid: Clear PAIN: Epidural EPISIOTOMY: No EXTENSION: No REPAIRED WITH 1st degree perineal lac - repaired with 3-0 Vicryl EBL 350mL COMPLICATIONS None Signs of Intrauterine Infectio: None Shoulder Dystocia: No DIAGNOSIS PAWEL CANTOR CNM Apr 10, 2021 16:44
[2021-04-10] MEDS ORDERED: BENZOCAINE 20% TOPICAL AEROSOL SPRAY 57GM CAN. TP PRN (16:45)
[2021-04-10] MEDS ORDERED: ACETAMINOPHEN 325 MG TABLET. PO PRN (16:45)
[2021-04-10] MEDS ORDERED: PHENYLEPH/MINERAL OIL/PETROLAT RECTAL OINTMENT TUBE. RC PRN (16:45)
[2021-04-10] MEDS ORDERED: MAGNESIUM HYDROXIDE 2,400 MG/30 ML ORAL.SUSP. PO PRN (16:45)
[2021-04-10] MEDS ORDERED: TDaP (Adacel) per PROTOCOL. MC PRN (16:45)
[2021-04-10] MEDS ORDERED: HYDROCORTISONE 1% TOPICAL OINTMENT 30GM TUBE. TP PRN (16:45)
[2021-04-10] MEDS ORDERED: ZOLPIDEM 5 MG TABLET. PO PRN (16:45)
[2021-04-10] MEDS ORDERED: SIMETHICONE 80 MG TAB.CHEW PO PRN (16:45)
[2021-04-10] MEDS ORDERED: MAG HYDROX/ALUMINUM HYD/SIMETH 30 ML ORAL.SUSP PO PRN (16:45)
[2021-04-10] MEDS ORDERED: MMR per PROTOCOL. MC PRN (16:45)
[2021-04-10] MEDS ORDERED: diphenhydrAMINE HCL 25 MG CAPSULE PO PRN (16:45)
[2021-04-10] MEDS: IBUPROFEN 400 MG TABLET. PO SCH (22:42)
[2021-04-10] MEDS: DOCUSATE SODIUM 100 MG CAPSULE. PO PRN (22:44)
[2021-04-10 22:45] VITALS: BP 119/73
[2021-04-11 04:45] VITALS: BP 119/69
[2021-04-11 06:52] LABS: CREATININE,RANDOM URINE 76.9 mg/dL (Not Establ.)
[2021-04-11 08:00] VITALS: BP 115/63
[2021-04-11] MEDS: FERROUS SULFATE 325 MG TABLET. PO SCH ×2 (08:00→17:00)
[2021-04-11 08:25] LABS: BASO % 0 % (0-3); EOS # 0.2 x10^3/uL (0.0-0.7); EOS % 1 % (0-3); HEMATOCRIT 32.6 % (36.0-47.0); HEMOGLOBIN 10.7 g/dL (12.0-15.5); LYMPH % 15 % (24-48); MEAN CORPUSCULAR HEMOGLOBIN 30 pg (25-35); MEAN CORPUSCULAR HGB CONC 33 g/dL (31-37); MEAN CORPUSCULAR VOLUME 91 fL (79-100); MONO % 8 % (0-9); NEUT # 10.1 x10^3/uL (1.8-7.7); NEUT % 76 % (31-73); PLATELET COUNT 136 x10^3/uL (140-400); RED BLOOD COUNT 3.59 x10^6/uL (3.50-5.40); RED CELL DISTRIBUTION WIDTH 13.9 % (11.5-14.5); WHITE BLOOD COUNT 13.3 x10^3/uL (4.0-11.0)
[2021-04-11] MEDS: MULTIVITAMIN with MINERAL TABLET. PO SCH (08:34)
[2021-04-11] MEDS: IBUPROFEN 400 MG TABLET. PO SCH ×2 (08:35→17:33)
[2021-04-11] MEDS: DOCUSATE SODIUM 100 MG CAPSULE. PO PRN (08:36)
--- NOTE | 2021-04-11 11:37 | PDOC ---
SHOE CUTTER PROGRESS NOTE Date of Service: DATE: 04/11/21 TIME: 11:35 Subjective: Pt with good pain control. [place] PO. Voiding. Minimal lochia. Objective: Vital Signs: Vital Signs Date Time Temp Pulse Resp B/P (MAP) Pulse Ox O2 Delivery O2 Flow Rate FiO2 04/10/21 07:17 Room Air 04/10/21 11:16 16 04/10/21 22:45 97.9 76 119/73 (88) 99 97.9 Vital Signs Date Time Temp Pulse Resp B/P (MAP) Pulse Ox O2 Delivery O2 Flow Rate FiO2 04/11/21 08:00 98.4 95 18 115/63 (80) 99 Room Air 98.4 Labs: Laboratory Tests Test 04/11/21 07:40 White Blood Count 13.3 x10^3/uL (4.0-11.0) H Red Blood Count 3.59 x10^6/uL (3.50-5.40) Hemoglobin 10.7 g/dL (12.0-15.5) L Hematocrit 32.6 % (36.0-47.0) L Mean Corpuscular Volume 91 fL (79-100) Mean Corpuscular Hemoglobin 30 pg (25-35) Mean Corpuscular Hemoglobin Concent 33 g/dL (31-37) Red Cell Distribution Width 13.9 % (11.5-14.5) Platelet Count 136 x10^3/uL (140-400) L Neutrophils (%) (Auto) 76 % (31-73) H Lymphocytes (%) (Auto) 15 % (24-48) L Monocytes (%) (Auto) 8 % (0-9) Eosinophils (%) (Auto) 1 % (0-3) Basophils (%) (Auto) 0 % (0-3) Neutrophils # (Auto) 10.1 x10^3/uL (1.8-7.7) H Lymphocytes # (Auto) 2.0 x10^3/uL (1.0-4.8) Monocytes # (Auto) 1.0 x10^3/uL (0.0-1.1) Eosinophils # (Auto) 0.2 x10^3/uL (0.0-0.7) Basophils # (Auto) 0.0 x10^3/uL (0.0-0.2) Laboratory Tests 04/11/21 07:40 Laboratory Tests 04/11/21 07:40 Physical Exam: GENERAL: No apparent distress. Alert and oriented. HEENT: Head normocephalic, atraumatic. NECK: Supple LUNGS: Clear to auscultation. HEART: RRR, S1, S2 present, pulses intact ABDOMEN: Soft, positive bowel sounds. EXTREMITIES: No cyanosis or edema. NEUROLOGIC: Normal speech, normal tone PSYCHIATRIC: Normal affect, normal mood. SKIN: No ulceration. FFNT below umb No C/C/E Assessment & Plan: A/P 30y PPD #1 s/p 1.) PP doing well 2.) H/o Nephrotic syndrome - in remission since 2014, baseline random urine Pr/Cr 0.061 -> 0.1074 -> now .200 on admission, [facility] labs wnl on admission 3.) Increased swelling - [facility] labs still wnl 4.) Asthma - rare needs inhaler 5.) Migraines 6.) s/p Covid vaccine (July) 7.) TDAP given 03/01/21 8.) Boy D'Fred 9.) Hgb 12.9 -> 10.7 10.) Cont PP care MARY NOBLE MD Apr 11, 2021 11:37
[2021-04-11 12:10] VITALS: BP 118/68
[2021-04-11 16:15] VITALS: BP 109/52
[2021-04-11 20:39] VITALS: BP 116/79
[2021-04-11 22:05] VITALS: BP 115/56
--- NOTE | 2021-04-11 22:09 | NUR ---
RN at bedside for hourly rounds. Pt. mother states "Aicha is feeling a little lightheaded". VS and physical assessment completed and charted. Pt. into bed and lights turned down. Pt. going to rest. Call light within reach. RN educated pt. on use of call light and not to get up without assistance if feeling dizzy/lightheaded. Pt. verbalized understanding.
[2021-04-12 06:10] VITALS: BP 119/60
[2021-04-12] MEDS: IBUPROFEN 400 MG TABLET. PO SCH (06:10)
[2021-04-12] MEDS: MULTIVITAMIN with MINERAL TABLET. PO SCH (08:56)
[2021-04-12] MEDS: DOCUSATE SODIUM 100 MG CAPSULE. PO PRN (08:57)
[2021-04-12] MEDS ORDERED: DOCU-109 PO (09:39)
[2021-04-12] MEDS ORDERED: IBUP-1060 PO (09:39)
--- NOTE | 2021-04-12 11:06 | PDOC ---
FORK LIFT TECHNICIAN PROGRESS NOTE Date of Service: DATE: 04/12/21 TIME: 11:05 Subjective: Pt with good pain control. [place] PO. Voiding. Minimal lochia. Objective: Vital Signs: Vital Signs Date Time Temp Pulse Resp B/P (MAP) Pulse Ox O2 Delivery O2 Flow Rate FiO2 04/11/21 08:00 98.4 95 18 115/63 (80) 99 Room Air 98.4 Vital Signs Date Time Temp Pulse Resp B/P (MAP) Pulse Ox O2 Delivery O2 Flow Rate FiO2 04/12/21 09:04 Room Air 04/12/21 06:10 98.6 72 20 119/60 (79) 97 98.6 Physical Exam: GENERAL: No apparent distress. Alert and oriented. HEENT: Head normocephalic, atraumatic. NECK: Supple LUNGS: Clear to auscultation. HEART: RRR, S1, S2 present, pulses intact ABDOMEN: Soft, positive bowel sounds. EXTREMITIES: No cyanosis or edema. NEUROLOGIC: Normal speech, normal tone PSYCHIATRIC: Normal affect, normal mood. SKIN: No ulceration. FFNT below umb No C/C/E Assessment & Plan: A/P 30y PPD #2 s/p 1.) PP doing well 2.) H/o Nephrotic syndrome - in remission since 2014, baseline random urine Pr/Cr 0.061 -> 0.1074 -> now 0.200 on admission, [facility] labs wnl on admission 3.) Increased swelling - [facility] labs still wnl 4.) Asthma - rare needs inhaler 5.) Migraines 6.) s/p Covid vaccine (July) 7.) TDAP given 03/01/21 8.) Boy Daly'Fred 9.) Hgb 12.9 -> 10.7 10.) D/c home MARY NOBLE MD Apr 12, 2021 11:06
[2021-04-12 13:55] VITALS: BP 116/61
--- NOTE | 2021-04-12 15:33 | NUR ---
@ 2298 patient dc'd via WC to vehicle accompanied by RN's and mother with baby and belongings in hand.
--- NOTE | 2021-04-20 12:57 | DS ---
DATE OF DISCHARGE: 04/12/2021 ADMISSION DIAGNOSES: 1. A 30-year-old G1 at 38.3 weeks' gestation. 2. Spontaneous labor. 3. Category 1 heart tones. 4. GBS negative. 5. Status post Tdap, 03/01/2021. 6. COVID vaccine x2 in 07/2020. 7. Past medical history significant for nephrotic syndrome. BRIEF HOSPITAL COURSE: The patient presented to labor and delivery with complaints of increasing frequency and intensity of uterine contractions at approximately 0220. Upon arrival, her SVE was 3, 75 and -3 with progressive change to 4+100 and -2 station with a bulging bag of water. She was then admitted for labor. She received labor epidural for pain management. She progressed adequately becoming complete at 1514, pushing was initiated at 1530. Following a 37-minute second stage, the head delivered in DANYA position with external rotation to ROT. The anterior shoulder delivered easily with maternal pushing effort, followed by full expulsion of a vigorous male . The infant was delivered to maternal abdomen. Cord clamping was delayed until pulsations had ceased, at which point, the cord was doubly clamped and cut by the patient's mother. A first-degree perineal laceration was repaired with 3-0 Vicryl in the standard fashion with complete hemostasis and good anatomic result. EBL was 350 mL. Apgars were 8, 9 and 9. Infant weight was 3340 grams or 7 pounds 5.8 ounces. Both mother and were stable following delivery. The course was routine. She was discharged to home in stable condition to follow up in [address] Garcia. Prescriptions were sent for ibuprofen, iron supplement, and Colace. DISCHARGE DIAGNOSES: 1. A 30-year-old G1 at 38.3 weeks' gestation. 2. Spontaneous labor. 3. Category 1 heart tones. 4. GBS negative. 5. Status post Tdap, 03/01/2021. 6. COVID vaccine x2 in 07/2020. 7. Past medical history significant for nephrotic syndrome. FINAL DIAGNOSES: 1. A 30-year-old G1 at 38.3 weeks' gestation. 2. Spontaneous labor. 3. Category 1 heart tones. 4. GBS negative. 5. Status post Tdap, 03/01/2021. 6. COVID vaccine x2 in 07/2020. 7. Past medical history significant for nephrotic syndrome. JAKE DR: Gena TID: [id number]
== END 2021-04-12 14:05 | disposition home or self-care (01) | DRG 807 ==
LOC: OBSVTOIN 04:29 → 3 SO LND 04:29
PROVIDERS: ADMIT Registered Nurse; ATTEND Registered Nurse
PROC: 10E0XZZ Delivery of Products of Conception, External Approach (ICD-10-PCS; principal; 2021-04-10)
PROC: 0HQ9XZZ Repair Perineum Skin, External Approach (ICD-10-PCS; 2021-04-10)
PROC: 3E0R3BZ Introduction of Anesthetic Agent into Spinal Canal, Percutaneous Approach (ICD-10-PCS; 2021-04-10)
PROC: 00HU33Z Insertion of Infusion Device into Spinal Canal, Percutaneous Approach (ICD-10-PCS; 2021-04-10)
DX: O99.52 Diseases of the respiratory system complicating childbirth (principal); Z37.0 Single live birth; Z87.441 Personal history of nephrotic syndrome; J45.20 Mild intermittent asthma, uncomplicated; G43.909 Migraine, unspecified, not intractable, without status migrainosus; O99.354 Diseases of the nervous system complicating childbirth; Z3A.38 38 weeks gestation of pregnancy; Z88.2 Allergy status to sulfonamides; Z88.8 Allergy status to other drugs, medicaments and biological substances; O70.0 First degree perineal laceration during delivery
CPT/HCPCS: 36415; 80053; 81001; 82570; 83615; 84156; 84550; 85025; 86850; 86900; 86901; J2795; J3010; J7120; G0378